=== PATIENT | female | born 1945 | race Asian ===

== ENCOUNTER 2024-03-16 23:27 | Inpatient (IN) | payer OTHER ==
[2024-03-16] MEDS ORDERED: RAPID SEQUENCE INTUBATION KIT NR ONE (23:48)
[2024-03-17] MEDS: ROCURONIUM BROMIDE 50 MG/5 ML VIAL IV ONE ×2 (00:30→03:45)
[2024-03-17 01:10] LABS: EPI CELLS >36 /uL (0-25.1); HYALINE CASTS 19 /uL (0-3.1); PH,URINE 5.5 (5.0-8.0); URINE APPEARANCE CLOUDY; URINE BACTERIA 2 /uL (0-1359); URINE BILIRUBIN NEGATIVE (NEGATIVE); URINE COLOR YELLOW; URINE GLUCOSE (UA) NEGATIVE (NEGATIVE); URINE KETONE TRACE (NEGATIVE); URINE LEUK ESTERASE NEGATIVE (NEGATIVE); URINE NITRITE NEGATIVE (NEGATIVE); URINE PROTEIN 2+ (NEGATIVE); URINE RBC 10 /uL (0-23.9); URINE UROBILINOGEN 0.2 mg/dL (0.2-1.0); VENOUS BASE EXCESS -2.8 mmol/L (-2-2); VENOUS O2 SATURATION 78.3 % (70-80); VENOUS PCO2 34.1 mmHg (38-52); VENOUS PH 7.414 (7.310-7.410)
[2024-03-17 01:11] LABS: VENOUS BASE EXCESS -6.1 mmol/L (-2-2); VENOUS O2 SATURATION 81.1 % (70-80); VENOUS PH 7.309 (7.310-7.410)
[2024-03-17 01:17] LABS: INR 1.17 (0.83-1.09); PROTHROMBIN TIME (PATIENT) 13.4 SEC (9.7-13.0)
[2024-03-17 01:19] LABS: ACTIVATED PTT 43.2 SECONDS (25.2-36.5)
[2024-03-17] MEDS ORDERED: VANCOMYCIN 1 GRAM (PRE-DOCKED) 1,000 MG/250 ML BAG IVPB ONE (01:22)
[2024-03-17] MEDS ORDERED: CEFEPIME 1 GM/100 ML BAG IVPB ONE (01:23)
[2024-03-17 01:31] LABS: CHLORIDE 164 mmol/L (98-107); POTASSIUM 3.9 mmol/L (3.5-5.1)
[2024-03-17 01:33] LABS: BLOOD UREA NITROGEN 69.1 mg/dL (7-18); CALCIUM 8.8 mg/dL (8.5-10.1); CO2 24 mmol/L (21-32); GLUCOSE,RANDOM 61 mg/dL (74-106)
[2024-03-17 01:36] LABS: SGOT/AST 76 U/L (15-37); SGPT/ALT 24 U/L (13-61)
[2024-03-17 01:37] LABS: CREATININE 1.7 mg/dL (0.55-1.3)
[2024-03-17] MEDS: CEFEPIME HCL 1 GM VIAL (RESTRICTED TO ID) IVPB ONE (01:37)
[2024-03-17 01:38] LABS: BILIRUBIN,TOTAL 0.9 mg/dL (0.2-1); HEMATOCRIT 34.1 % (32.4-45.2); HEMOGLOBIN 9.8 GM/dL (10.7-15.3); MCH 33.8 pg (25.7-33.7); MCHC 28.8 g/dl (32.0-36.0); MEAN CELL VOLUME 117.3 fl (80-96); MEAN PLT VOLUME 11.6 fl (7.5-11.1); PLATELET COUNT 87 10^3/uL (134-434); RBC 2.91 M/mm3 (3.60-5.2); RDW 19.6 % (11.6-15.6); TOT PROT 6.6 g/dl (6.4-8.2); WHITE BLOOD COUNT 6.1 K/mm3 (4.0-10.0)
[2024-03-17 01:39] LABS: ALK PHOS 238 U/L (45-117)
[2024-03-17 01:45] LABS: ANION GAP 6 mmol/L (4-13); SODIUM 194 mmol/L (136-145)
[2024-03-17] MEDS: SODIUM CHLORIDE 0.9% 500 ML INFUS.BAG IV ONE (02:06)
[2024-03-17] MEDS: VANCOMYCIN 1,000 MG in DEXTROSE 5%-WATER - 250 ML IVPB ONE (02:23)
[2024-03-17 02:40] LABS: ANISOCYTOSIS 2+; MACROCYTOSIS 2+
[2024-03-17 02:43] LABS: PLATELET ESTIMATE DECREASED
[2024-03-17 03:03] LABS: LACTIC ACID 5.1 mmol/L (0.4-2.0)
[2024-03-17 03:10] LABS: URINE WBC 79.7 /uL (0-25.8)
[2024-03-17] MEDS: ETOMIDATE 20 MG/10 ML VIAL IVPUSH ONE (03:14)
[2024-03-17 03:21] LABS: CHLORIDE 160 mmol/L (98-107)
[2024-03-17 03:24] LABS: BLOOD UREA NITROGEN 60.7 mg/dL (7-18); CO2 21 mmol/L (21-32); GLUCOSE,RANDOM 302 mg/dL (74-106)
[2024-03-17 03:27] LABS: CREATININE 1.4 mg/dL (0.55-1.3); SGOT/AST 38 U/L (15-37); SGPT/ALT 17 U/L (13-61)
[2024-03-17 03:28] LABS: BILIRUBIN,TOTAL 0.6 mg/dL (0.2-1)
[2024-03-17 03:34] LABS: ALBUMIN 1.5 g/dl (3.4-5.0); ALK PHOS 174 U/L (45-117); ANION GAP 4 mmol/L (4-13); CALCIUM 6.8 mg/dL (8.5-10.1); POTASSIUM 1.9 mmol/L (3.5-5.1); SODIUM 184 mmol/L (136-145)
[2024-03-17] MEDS: LACTATED RINGERS SOLUTION 1,000 ML/1,000 ML INFUS.BAG IV SCH (04:05)
[2024-03-17 04:29] LABS: CHLORIDE 165 mmol/L (98-107)
[2024-03-17 04:31] LABS: ALBUMIN 1.7 g/dl (3.4-5.0); BLOOD UREA NITROGEN 68.3 mg/dL (7-18); CALCIUM 7.8 mg/dL (8.5-10.1); CO2 21 mmol/L (21-32); GLUCOSE,RANDOM 203 mg/dL (74-106)
[2024-03-17 04:34] LABS: SGPT/ALT 21 U/L (13-61)
[2024-03-17 04:35] LABS: CREATININE 1.6 mg/dL (0.55-1.3); SGOT/AST 48 U/L (15-37)
[2024-03-17 04:36] LABS: BILIRUBIN,TOTAL 0.7 mg/dL (0.2-1); TOT PROT 5.5 g/dl (6.4-8.2)
[2024-03-17 04:37] LABS: ALK PHOS 199 U/L (45-117)
[2024-03-17] MEDS ORDERED: NOREPINEPHRINE BITARTRATE/D5W 8 MG/250 ML BAG IVPB ONE (04:48)
[2024-03-17 04:50] LABS: LACTIC ACID 5.6 mmol/L (0.4-2.0)
[2024-03-17] MEDS ORDERED: MAGNESIUM SULFATE IN WATER 2 GM/50 ML IVPB IVPB ONE (04:50)
[2024-03-17 05:01] LABS: ANION GAP 6 mmol/L (4-13); POTASSIUM 2.5 mmol/L (3.5-5.1); SODIUM 192 mmol/L (136-145)
[2024-03-17] MEDS: NOREPINEPHRINE BITARTRATE/D5W 8 MG/250 ML BAG IVPB SCH (05:10)
[2024-03-17] MEDS: MAGNESIUM SULFATE IN WATER 2 GM/50 ML IVPB IVPB ONE (05:10)
[2024-03-17] MEDS: KCL 10 MEQ IVPB 10 MEQ/100 ML INFUS.BAG IVPB SCH (05:40)
[2024-03-17 05:58] LABS: MAGNESIUM 3.9 mg/dL (1.8-2.4)
[2024-03-17] MEDS ORDERED: PIPERACILLIN/TAZOB 2.25 GM 2.25 GM in DEXTROSE 5%-WATER - 50 ML IVPB SCH (07:00)
[2024-03-17 07:24] LABS: LACTIC ACID 4.6 mmol/L (0.4-2.0)
[2024-03-17] MEDS ORDERED: PIPERACILLIN/TAZOB 2.25 GM 2.25 GM/50 ML BAG IVPB ONE (07:43)
[2024-03-17] MEDS ORDERED: FENTANYL IVPB 500 MCG/100 ML BAG IVPB ONE (08:10)
[2024-03-17] MEDS: PIPERACILLIN/TAZOB 2.25 GM 2.25 GM in DEXTROSE 5%-WATER - 50 ML IVPB SCH (08:10)
[2024-03-17 08:30] LABS: CHLORIDE 158 mmol/L (98-107)
[2024-03-17 08:31] LABS: MCH 33.1 pg (25.7-33.7); MCHC 28.4 g/dl (32.0-36.0); MEAN CELL VOLUME 116.5 fl (80-96); MEAN PLT VOLUME 11.6 fl (7.5-11.1); PLATELET COUNT 64 10^3/uL (134-434); RDW 19.3 % (11.6-15.6)
[2024-03-17 08:32] LABS: CALCIUM 7.8 mg/dL (8.5-10.1)
[2024-03-17 08:33] LABS: ALBUMIN 1.7 g/dl (3.4-5.0); BLOOD UREA NITROGEN 61.7 mg/dL (7-18); CO2 24 mmol/L (21-32); GLUCOSE,RANDOM 211 mg/dL (74-106); MAGNESIUM 3.6 mg/dL (1.8-2.4)
[2024-03-17 08:34] LABS: ANION GAP 3 mmol/L (4-13); POTASSIUM 2.6 mmol/L (3.5-5.1); SODIUM 185 mmol/L (136-145)
[2024-03-17 08:34] LABS: MAGNESIUM 3.5 mg/dL (1.8-2.4)
[2024-03-17] MEDS: NOREPINEPHRINE BITARTRATE 8,000 MCG in DEXTROSE 5%-WATER - 492 ML IV SCH (08:35)
[2024-03-17 08:36] LABS: CREATININE 1.5 mg/dL (0.55-1.3); PHOSPHOROUS 2.6 mg/dL (2.5-4.9); SGOT/AST 46 U/L (15-37); SGPT/ALT 22 U/L (13-61)
[2024-03-17 08:37] LABS: BILIRUBIN,TOTAL 0.7 mg/dL (0.2-1); TOT PROT 5.4 g/dl (6.4-8.2)
[2024-03-17 08:39] LABS: ALK PHOS 202 U/L (45-117)
[2024-03-17 08:45] LABS: LACTIC ACID 3.9 mmol/L (0.4-2.0)
[2024-03-17] MEDS: FENTANYL IVPB 500 MCG/100 ML BAG IVPB SCH (08:45)
[2024-03-17] MEDS: DEXTROSE 5%-WATER - 1,000 ML IV SCH (08:51)
[2024-03-17 09:57] LABS: ANISOCYTOSIS 1+; MACROCYTOSIS 1+
[2024-03-17] MEDS ORDERED: PANTOPRAZOLE SODIUM 40 MG/100 ML BAG IVPB ONE (10:16)
[2024-03-17] MEDS ORDERED: HEPARIN NA (PORCINE) 5,000 UNITS/ML 1ML VIAL ONE (10:16)
[2024-03-17] MEDS: PANTOPRAZOLE SODIUM 40 MG VIAL IVPUSH SCH (10:26)
[2024-03-17] MEDS: HEPARIN NA (PORCINE) 5,000 UNITS/ML 1ML VIAL SQ SCH (10:26)
[2024-03-17] MEDS: MUPIROCIN 2% TOPICAL OINTMENT FOR DECOLONIZATION NS SCH (12:11)
[2024-03-17] MEDS: VASopressin 40 UNITS/100 ML BAG IV SCH (12:12)
[2024-03-17] MEDS: SODIUM CHLORIDE 0.9%/KCL 20 MEQ/1,000 ML INFUS.BAG IV SCH (12:19)
[2024-03-17] MEDS: NOREPINEPHRINE 0.9 % NACL 8 MG/250 ML BAG IVPB SCH (13:20)
[2024-03-17 14:42] LABS: CHLORIDE 157 mmol/L (98-107)
[2024-03-17 14:43] LABS: BLOOD UREA NITROGEN 66.8 mg/dL (7-18); CALCIUM 7.3 mg/dL (8.5-10.1); CO2 23 mmol/L (21-32); GLUCOSE,RANDOM 234 mg/dL (74-106)
[2024-03-17] MEDS: POTASSIUM CHLORIDE 40 MEQ in LACTATED RINGERS SOLUTION 1,000 ML IV ONE ×2 (14:45→21:19)
[2024-03-17 14:47] LABS: CREATININE 1.4 mg/dL (0.55-1.3)
[2024-03-17 14:52] LABS: ANION GAP 5 mmol/L (4-13); POTASSIUM 2.7 mmol/L (3.5-5.1); SODIUM 184 mmol/L (136-145)
[2024-03-17] MEDS ORDERED: ARTIFICIAL TEARS OPHTHALMIC DROPS OU PRN (17:08)
[2024-03-17] MEDS: KCL 20 MEQ PREMIX BAG 20 MEQ/100 ML INFUS.BAG IVPB SCH (17:50)
[2024-03-17 19:03] LABS: CHLORIDE 154 mmol/L (98-107); POTASSIUM 3.7 mmol/L (3.5-5.1)
[2024-03-17 19:05] LABS: CALCIUM 7.3 mg/dL (8.5-10.1); SODIUM 179 mmol/L (136-145)
[2024-03-17 19:06] LABS: ANION GAP 3 mmol/L (4-13); BLOOD UREA NITROGEN 65.9 mg/dL (7-18); CO2 21 mmol/L (21-32); GLUCOSE,RANDOM 218 mg/dL (74-106)
[2024-03-17 19:09] LABS: CREATININE 1.5 mg/dL (0.55-1.3)
[2024-03-17] MEDS ORDERED: VANCOMYCIN 500 MG in DEXTROSE 5%-WATER - 100 ML IVPB SCH (21:00)
[2024-03-17] MEDS: CHLORHEXIDINE GLUCONATE 4% CLEANSER FOR DECOLONIZATION TP SCH (21:34)
[2024-03-17] MEDS: VANCOMYCIN 500 MG in DEXTROSE 5%-WATER 100 ML IVPB SCH (22:16)
[2024-03-17 23:12] LABS: CHLORIDE 154 mmol/L (98-107)
[2024-03-17 23:13] LABS: CALCIUM 7.3 mg/dL (8.5-10.1); CO2 20 mmol/L (21-32); GLUCOSE,RANDOM 198 mg/dL (74-106)
[2024-03-17 23:14] LABS: ANION GAP 4 mmol/L (4-13); SODIUM 178 mmol/L (136-145)
[2024-03-17 23:17] LABS: CREATININE 1.4 mg/dL (0.55-1.3)
[2024-03-18] MEDS ORDERED: FENTANYL NS IVPB 500 MCG/100 ML BAG IVPB ONE (05:38)
[2024-03-18 06:04] LABS: HEMOGLOBIN 7.4 GM/dL (10.7-15.3); MCH 33.5 pg (25.7-33.7); MCHC 29.6 g/dl (32.0-36.0); MEAN CELL VOLUME 113.1 fl (80-96); MEAN PLT VOLUME 13.1 fl (7.5-11.1); PLATELET COUNT 46 10^3/uL (134-434); RBC 2.21 M/mm3 (3.60-5.2); WHITE BLOOD COUNT 12.4 K/mm3 (4.0-10.0)
[2024-03-18 06:07] LABS: ARTERIAL BLD GAS O2 SATURATION 99.5 % (95-98); ARTERIAL BLOOD GAS BASE EXCESS -6.5 mmol/L (-2-2); ARTERIAL BLOOD GAS PO2 223.6 mmHg (80-100)
[2024-03-18 06:18] LABS: VENT MODE V-AC; VENT RATE 14
[2024-03-18 06:35] LABS: CHLORIDE 152 mmol/L (98-107); POTASSIUM 5.1 mmol/L (3.5-5.1)
[2024-03-18 06:37] LABS: BLOOD UREA NITROGEN 64.4 mg/dL (7-18); CO2 19 mmol/L (21-32); GLUCOSE,RANDOM 185 mg/dL (74-106); MAGNESIUM 2.9 mg/dL (1.8-2.4)
[2024-03-18 06:40] LABS: CREATININE 1.3 mg/dL (0.55-1.3); PHOSPHOROUS 3.2 mg/dL (2.5-4.9)
[2024-03-18 07:00] LABS: LACTIC ACID 3.4 mmol/L (0.4-2.0)
[2024-03-18 07:01] LABS: ANION GAP 4 mmol/L (4-13); CALCIUM 6.9 mg/dL (8.5-10.1); SODIUM 175 mmol/L (136-145)
[2024-03-18] MEDS: ALBUMIN HUMAN 5% 500 ML IV SOLUTION IV ONE (10:51)
[2024-03-18] MEDS ORDERED: SODIUM CHLORIDE IV SCH (10:57)
[2024-03-18] MEDS ORDERED: NOREPINEPHRINE BITARTRATE IV SCH (10:57)
[2024-03-18 11:22] LABS: CHLORIDE 151 mmol/L (98-107); POTASSIUM 4.7 mmol/L (3.5-5.1)
[2024-03-18 11:24] LABS: BLOOD UREA NITROGEN 66.2 mg/dL (7-18); CALCIUM 7.3 mg/dL (8.5-10.1); CO2 21 mmol/L (21-32); GLUCOSE,RANDOM 160 mg/dL (74-106); MAGNESIUM 3.1 mg/dL (1.8-2.4)
[2024-03-18 11:28] LABS: ANION GAP 3 mmol/L (4-13); CREATININE 1.4 mg/dL (0.55-1.3); PHOSPHOROUS 3.3 mg/dL (2.5-4.9); SODIUM 174 mmol/L (136-145)
[2024-03-18 11:42] LABS: LACTIC ACID 2.9 mmol/L (0.4-2.0)
[2024-03-18] MEDS: NOREPINEPHRINE BITARTRATE IV SCH (12:40)
[2024-03-18] MEDS: SODIUM CHLORIDE IV SCH (12:40)
[2024-03-18] MEDS: PIPERACILLIN/TAZOB 3.375 GM 3.375 GM in DEXTROSE 5%-WATER - 50 ML IVPB SCH (12:48)
[2024-03-18 16:23] LABS: HEMATOCRIT 22.3 % (32.4-45.2); MCH 33.2 pg (25.7-33.7); MEAN CELL VOLUME 114.6 fl (80-96); MEAN PLT VOLUME 11.5 fl (7.5-11.1); PLATELET COUNT 37 10^3/uL (134-434); RBC 1.95 M/mm3 (3.60-5.2); RDW 19.9 % (11.6-15.6); WHITE BLOOD COUNT 11.8 K/mm3 (4.0-10.0)
[2024-03-18 16:25] LABS: ADD RBC MORPHOLOGY YES
[2024-03-18 16:28] LABS: HEMOGLOBIN 6.5 GM/dL (10.7-15.3)
[2024-03-18 16:56] LABS: BLOOD UREA NITROGEN 66.2 mg/dL (7-18); CHLORIDE 151 mmol/L (98-107); CO2 20 mmol/L (21-32); CREATININE 1.4 mg/dL (0.55-1.3); GLUCOSE,RANDOM 163 mg/dL (74-106); POTASSIUM 4.4 mmol/L (3.5-5.1)
[2024-03-18 16:57] LABS: CALCIUM 7.4 mg/dL (8.5-10.1)
[2024-03-18 17:19] LABS: ANION GAP 4 mmol/L (4-13); ANISOCYTOSIS 1+; MACROCYTOSIS 2+; OVALOCYTE 0; SODIUM 174 mmol/L (136-145)
[2024-03-18] MEDS: FENTANYL NS IVPB 500 MCG/100 ML BAG IVPB SCH (19:01)
[2024-03-18 21:39] LABS: HEMATOCRIT 29.7 % (32.4-45.2); HEMOGLOBIN 9.3 GM/dL (10.7-15.3); MCHC 31.3 g/dl (32.0-36.0); MEAN CELL VOLUME 102.5 fl (80-96); MEAN PLT VOLUME 12.1 fl (7.5-11.1); PLATELET COUNT 39 10^3/uL (134-434); RDW 24.6 % (11.6-15.6); WHITE BLOOD COUNT 12.5 K/mm3 (4.0-10.0)
[2024-03-18 22:06] LABS: CHLORIDE 153 mmol/L (98-107); POTASSIUM 4.3 mmol/L (3.5-5.1)
[2024-03-18 22:08] LABS: CALCIUM 7.2 mg/dL (8.5-10.1)
[2024-03-18 22:09] LABS: BLOOD UREA NITROGEN 63.8 mg/dL (7-18); CO2 18 mmol/L (21-32); GLUCOSE,RANDOM 161 mg/dL (74-106)
[2024-03-18 22:12] LABS: CREATININE 1.2 mg/dL (0.55-1.3)
[2024-03-18 22:23] LABS: ANION GAP 6 mmol/L (4-13); SODIUM 176 mmol/L (136-145)
[2024-03-18] MEDS: DEXTROSE 5%-WATER - 1,000 ML IV SCH (22:30)
[2024-03-19 04:47] LABS: CHLORIDE 150 mmol/L (98-107); POTASSIUM 3.8 mmol/L (3.5-5.1)
[2024-03-19 04:49] LABS: BLOOD UREA NITROGEN 64.5 mg/dL (7-18); CO2 18 mmol/L (21-32); GLUCOSE,RANDOM 215 mg/dL (74-106); MAGNESIUM 2.9 mg/dL (1.8-2.4)
[2024-03-19 04:51] LABS: HEMATOCRIT 29.4 % (32.4-45.2); HEMOGLOBIN 9.1 GM/dL (10.7-15.3); MCH 31.4 pg (25.7-33.7); MCHC 31.1 g/dl (32.0-36.0); MEAN CELL VOLUME 100.9 fl (80-96); MEAN PLT VOLUME 13.6 fl (7.5-11.1); RBC 2.91 M/mm3 (3.60-5.2); RDW 25.4 % (11.6-15.6); WHITE BLOOD COUNT 12.4 K/mm3 (4.0-10.0)
[2024-03-19 04:52] LABS: CREATININE 1.3 mg/dL (0.55-1.3); PHOSPHOROUS 3.1 mg/dL (2.5-4.9)
[2024-03-19 05:59] LABS: LACTIC ACID 2.4 mmol/L (0.4-2.0)
[2024-03-19 06:00] LABS: ANISOCYTOSIS 1+; MACROCYTOSIS 1+
[2024-03-19 06:03] LABS: ANION GAP 6 mmol/L (4-13); SODIUM 173 mmol/L (136-145)
[2024-03-19 06:04] LABS: PLATELET COUNT 35 10^3/uL (134-434)
[2024-03-19 06:23] LABS: ARTERIAL BLD GAS O2 SATURATION 98.5 % (95-98); ARTERIAL BLOOD GAS BASE EXCESS -12.1 mmol/L (-2-2); ARTERIAL BLOOD GAS PO2 135.2 mmHg (80-100)
[2024-03-19 06:50] LABS: VENT RATE 14
[2024-03-19] MEDS: DEXTROSE 5%-WATER - 1,000 ML IV SCH (07:00)
[2024-03-19 10:55] LABS: INR 1.23 (0.83-1.09); PROTHROMBIN TIME (PATIENT) 13.8 SEC (9.7-13.0)
[2024-03-19 10:58] LABS: ACTIVATED PTT 42.4 SECONDS (25.2-36.5)
[2024-03-19 11:10] LABS: CHLORIDE 148 mmol/L (98-107); POTASSIUM 3.4 mmol/L (3.5-5.1)
[2024-03-19 11:12] LABS: BLOOD UREA NITROGEN 63.4 mg/dL (7-18); CALCIUM 7.2 mg/dL (8.5-10.1); CO2 20 mmol/L (21-32); GLUCOSE,RANDOM 209 mg/dL (74-106)
[2024-03-19 11:16] LABS: CREATININE 1.3 mg/dL (0.55-1.3)
[2024-03-19 11:30] LABS: ANION GAP 5 mmol/L (4-13); LACTIC ACID 2.2 mmol/L (0.4-2.0); SODIUM 173 mmol/L (136-145)
[2024-03-19] MEDS: HYDROCORTISONE SOD SUCCINATE 100 MG/2 ML VIAL IVPUSH SCH (13:15)
[2024-03-19] MEDS: FLUDROCORTISONE ACETATE 0.1 MG TABLET (FP) PO SCH (13:16)
[2024-03-19] MEDS: ACETAMINOPHEN 650 MG/20.3 ML ORAL SOLUTION (CUPS) PO PRN (13:16)
[2024-03-19] MEDS: CEFTRIAXONE 2 GM in DEXTROSE 5%-WATER 100 ML IVPB SCH (17:40)
[2024-03-19 18:27] LABS: CHLORIDE 146 mmol/L (98-107); POTASSIUM 3.2 mmol/L (3.5-5.1)
[2024-03-19 18:31] LABS: CALCIUM 7.2 mg/dL (8.5-10.1)
[2024-03-19 18:32] LABS: ALBUMIN 1.7 g/dl (3.4-5.0); BLOOD UREA NITROGEN 61.8 mg/dL (7-18); CO2 19 mmol/L (21-32); GLUCOSE,RANDOM 256 mg/dL (74-106)
[2024-03-19 18:35] LABS: ANION GAP 5 mmol/L (4-13); CREATININE 1.2 mg/dL (0.55-1.3); SGOT/AST 145 U/L (15-37); SGPT/ALT 128 U/L (13-61); SODIUM 171 mmol/L (136-145)
[2024-03-19 18:36] LABS: BILIRUBIN,TOTAL 0.9 mg/dL (0.2-1); TOT PROT 4.8 g/dl (6.4-8.2)
[2024-03-19 18:50] LABS: ALK PHOS 411 U/L (45-117)
[2024-03-20 07:52] LABS: HEMATOCRIT 27.6 % (32.4-45.2); HEMOGLOBIN 8.7 GM/dL (10.7-15.3); MCH 31.9 pg (25.7-33.7); MCHC 31.5 g/dl (32.0-36.0); MEAN CELL VOLUME 101.3 fl (80-96); MEAN PLT VOLUME 10.4 fl (7.5-11.1); RBC 2.72 M/mm3 (3.60-5.2); RDW 25.6 % (11.6-15.6); WHITE BLOOD COUNT 8.5 K/mm3 (4.0-10.0)
[2024-03-20 08:06] LABS: CHLORIDE 143 mmol/L (98-107)
[2024-03-20 08:07] LABS: CHLORIDE 144 mmol/L (98-107)
[2024-03-20 08:09] LABS: INR 1.01 (0.83-1.09); PROTHROMBIN TIME (PATIENT) 11.6 SEC (9.7-13.0)
[2024-03-20 08:12] LABS: CALCIUM 7.2 mg/dL (8.5-10.1)
[2024-03-20 08:13] LABS: ALBUMIN 1.7 g/dl (3.4-5.0); BLOOD UREA NITROGEN 61.7 mg/dL (7-18); CO2 20 mmol/L (21-32); GLUCOSE,RANDOM 227 mg/dL (74-106); MAGNESIUM 2.9 mg/dL (1.8-2.4)
[2024-03-20 08:15] LABS: ANION GAP 4 mmol/L (4-13); POTASSIUM 2.8 mmol/L (3.5-5.1); SODIUM 168 mmol/L (136-145); SODIUM 169 mmol/L (136-145)
[2024-03-20 08:16] LABS: CALCIUM 7.2 mg/dL (8.5-10.1); CREATININE 1.1 mg/dL (0.55-1.3); PHOSPHOROUS 2.6 mg/dL (2.5-4.9); SGOT/AST 140 U/L (15-37); SGPT/ALT 127 U/L (13-61)
[2024-03-20 08:17] LABS: ALBUMIN 1.7 g/dl (3.4-5.0); ANION GAP 4 mmol/L (4-13); BILIRUBIN,TOTAL 0.6 mg/dL (0.2-1); BLOOD UREA NITROGEN 60.9 mg/dL (7-18); CO2 21 mmol/L (21-32); GLUCOSE,RANDOM 226 mg/dL (74-106); TOT PROT 4.7 g/dl (6.4-8.2)
[2024-03-20 08:19] LABS: SGPT/ALT 125 U/L (13-61)
[2024-03-20 08:20] LABS: CREATININE 1.2 mg/dL (0.55-1.3); SGOT/AST 138 U/L (15-37)
[2024-03-20 08:21] LABS: ALK PHOS 445 U/L (45-117); BILIRUBIN,TOTAL 0.6 mg/dL (0.2-1); TOT PROT 4.6 g/dl (6.4-8.2)
[2024-03-20 08:28] LABS: ALK PHOS 460 U/L (45-117); LACTIC ACID 2.2 mmol/L (0.4-2.0); PLATELET COUNT 17 10^3/uL (134-434)
[2024-03-20] MEDS ORDERED: POTASSIUM CHLORIDE ORAL LIQUID 20 MEQ/15 ML PO SCH (10:00)
[2024-03-20] MEDS: POTASSIUM CHLORIDE ORAL LIQUID 20 MEQ/15 ML GT SCH (10:05)
[2024-03-20 13:58] LABS: LACTIC ACID 3.2 mmol/L (0.4-2.0)
[2024-03-20] MEDS: SODIUM CHLORIDE 0.45% 1,000 ML IV SCH (15:00)
[2024-03-20 18:30] LABS: HEMATOCRIT 25.1 % (32.4-45.2); MCH 32.8 pg (25.7-33.7); MCHC 31.9 g/dl (32.0-36.0); MEAN CELL VOLUME 102.7 fl (80-96); MEAN PLT VOLUME 8.7 fl (7.5-11.1); PLATELET COUNT 127 10^3/uL (134-434); RBC 2.44 M/mm3 (3.60-5.2); RDW 24.8 % (11.6-15.6); WHITE BLOOD COUNT 7.1 K/mm3 (4.0-10.0)
[2024-03-20 18:57] LABS: LACTIC ACID 3.3 mmol/L (0.4-2.0)
[2024-03-20 21:25] LABS: HEMATOCRIT 26.3 % (32.4-45.2); HEMOGLOBIN 8.4 GM/dL (10.7-15.3); MCH 31.7 pg (25.7-33.7); MCHC 31.9 g/dl (32.0-36.0); MEAN CELL VOLUME 99.3 fl (80-96); MEAN PLT VOLUME 8.5 fl (7.5-11.1); PLATELET COUNT 131 10^3/uL (134-434); RBC 2.65 M/mm3 (3.60-5.2); RDW 24.8 % (11.6-15.6); WHITE BLOOD COUNT 6.3 K/mm3 (4.0-10.0)
[2024-03-20 21:33] LABS: ADD RBC MORPHOLOGY YES
[2024-03-20 21:41] LABS: POTASSIUM 3.3 mmol/L (3.5-5.1)
[2024-03-20 21:43] LABS: BLOOD UREA NITROGEN 54.9 mg/dL (7-18); CALCIUM 7.3 mg/dL (8.5-10.1); MAGNESIUM 2.8 mg/dL (1.8-2.4)
[2024-03-20 21:47] LABS: CREATININE 1.1 mg/dL (0.55-1.3)
[2024-03-20 23:09] LABS: ANISOCYTOSIS 2+; MACROCYTOSIS 0; OVALOCYTE 1+
[2024-03-20] MEDS: POTASSIUM CHLORIDE ORAL LIQUID 20 MEQ/15 ML PO ONE (23:41)
[2024-03-20] MEDS: KCL 20 MEQ PREMIX BAG 20 MEQ/100 ML INFUS.BAG IVPB SCH (23:56)
[2024-03-21 07:31] LABS: HEMATOCRIT 27.3 % (32.4-45.2); HEMOGLOBIN 8.8 GM/dL (10.7-15.3); MCH 32.2 pg (25.7-33.7); MCHC 32.3 g/dl (32.0-36.0); MEAN CELL VOLUME 99.5 fl (80-96); MEAN PLT VOLUME 9.6 fl (7.5-11.1); PLATELET COUNT 115 10^3/uL (134-434); RBC 2.74 M/mm3 (3.60-5.2); WHITE BLOOD COUNT 6.4 K/mm3 (4.0-10.0)
[2024-03-21 07:43] LABS: CHLORIDE 140 mmol/L (98-107); POTASSIUM 4.8 mmol/L (3.5-5.1)
[2024-03-21 07:49] LABS: ALBUMIN 1.8 g/dl (3.4-5.0); BLOOD UREA NITROGEN 52.1 mg/dL (7-18); CALCIUM 7.2 mg/dL (8.5-10.1); CO2 17 mmol/L (21-32); GLUCOSE,RANDOM 141 mg/dL (74-106); MAGNESIUM 2.8 mg/dL (1.8-2.4)
[2024-03-21 07:52] LABS: CREATININE 0.9 mg/dL (0.55-1.3); PHOSPHOROUS 2.4 mg/dL (2.5-4.9); SGOT/AST 120 U/L (15-37); SGPT/ALT 125 U/L (13-61)
[2024-03-21 07:53] LABS: BILIRUBIN,TOTAL 0.6 mg/dL (0.2-1); TOT PROT 5.1 g/dl (6.4-8.2)
[2024-03-21 08:02] LABS: ALK PHOS 509 U/L (45-117); ANION GAP 4 mmol/L (4-13); SODIUM 161 mmol/L (136-145)
[2024-03-21] MEDS: HYDROCORTISONE SOD SUCCINATE 100 MG/2 ML VIAL IVPUSH SCH (09:34)
[2024-03-21] MEDS: FUROSEMIDE 40 MG/4 ML INJECTABLE VIAL IVPUSH ONE (09:35)
[2024-03-21] MEDS: ALBUMIN HUMAN 25% 100 ML VIAL IV ONE (10:42)
[2024-03-21 21:24] LABS: CHLORIDE 138 mmol/L (98-107); POTASSIUM 3.4 mmol/L (3.5-5.1)
[2024-03-21 21:26] LABS: ALBUMIN 2.5 g/dl (3.4-5.0); ANION GAP 4 mmol/L (4-13); CALCIUM 7.7 mg/dL (8.5-10.1); CO2 20 mmol/L (21-32); GLUCOSE,RANDOM 126 mg/dL (74-106); MAGNESIUM 2.9 mg/dL (1.8-2.4); SODIUM 163 mmol/L (136-145)
[2024-03-21 21:28] LABS: BLOOD UREA NITROGEN 51.7 mg/dL (7-18)
[2024-03-21 21:29] LABS: CREATININE 1.1 mg/dL (0.55-1.3)
[2024-03-21 21:31] LABS: BILIRUBIN,TOTAL 0.4 mg/dL (0.2-1); SGOT/AST 93 U/L (15-37); SGPT/ALT 98 U/L (13-61); TOT PROT 5.1 g/dl (6.4-8.2)
[2024-03-21 21:54] LABS: ALK PHOS 461 U/L (45-117)
[2024-03-21] MEDS: KCL 20 MEQ PREMIX BAG 20 MEQ/100 ML INFUS.BAG IVPB SCH (22:20)
[2024-03-21] MEDS: CALCIUM GLUC IN NACL, ISO-OSM 1 GM/50 ML BAG IVPB ONE (22:20)
[2024-03-22 07:09] LABS: HEMATOCRIT 24.9 % (32.4-45.2); HEMOGLOBIN 8.1 GM/dL (10.7-15.3); MCH 32.2 pg (25.7-33.7); MCHC 32.5 g/dl (32.0-36.0); MEAN CELL VOLUME 99.3 fl (80-96); MEAN PLT VOLUME 9.3 fl (7.5-11.1); PLATELET COUNT 71 10^3/uL (134-434); RBC 2.51 M/mm3 (3.60-5.2); RDW 22.9 % (11.6-15.6); WHITE BLOOD COUNT 5.7 K/mm3 (4.0-10.0)
[2024-03-22 07:27] LABS: POTASSIUM 3.7 mmol/L (3.5-5.1)
[2024-03-22 07:31] LABS: ALBUMIN 2.3 g/dl (3.4-5.0); BLOOD UREA NITROGEN 44.8 mg/dL (7-18); CALCIUM 7.8 mg/dL (8.5-10.1)
[2024-03-22 07:32] LABS: MAGNESIUM 2.6 mg/dL (1.8-2.4)
[2024-03-22 07:36] LABS: BILIRUBIN,TOTAL 0.5 mg/dL (0.2-1); TOT PROT 5.1 g/dl (6.4-8.2)
[2024-03-22] MEDS ORDERED: HYDROCORTISONE SOD SUCCINATE 100 MG/2 ML VIAL IVPUSH SCH (10:22)
[2024-03-22] MEDS: FUROSEMIDE 40 MG/4 ML INJECTABLE VIAL IVPUSH ONE (12:23)
[2024-03-22 12:35] LABS: ARTERIAL BLOOD GAS BASE EXCESS -6.6 mmol/L (-2-2); ARTERIAL BLOOD GAS PO2 58.5 mmHg (80-100); ARTERIAL BLOOD GAS pH 7.443 (7.350-7.450)
[2024-03-22 12:36] LABS: ALLENS TEST POSITIVE
[2024-03-22] MEDS: ALBUMIN HUMAN 25% 100 ML VIAL IV ONE (14:19)
[2024-03-22] MEDS: MIDODRINE HCL 2.5 MG TABLET PO SCH (17:48)
[2024-03-22 19:37] LABS: CHLORIDE 132 mmol/L (98-107); POTASSIUM 2.4 mmol/L (3.5-5.1); SODIUM 159 mmol/L (136-145)
[2024-03-22 19:40] LABS: CALCIUM 7.8 mg/dL (8.5-10.1)
[2024-03-22 19:41] LABS: ANION GAP 7 mmol/L (4-13); BLOOD UREA NITROGEN 42.9 mg/dL (7-18); CO2 19 mmol/L (21-32); GLUCOSE,RANDOM 97 mg/dL (74-106)
[2024-03-22] MEDS ORDERED: KCL 10 MEQ IVPB 10 MEQ/100 ML INFUS.BAG IVPB SCH (20:15)
[2024-03-22] MEDS ORDERED: POTASSIUM CHLORIDE TABS 20 MEQ TABLET.ER (FP) PO ONE (20:16)
[2024-03-22] MEDS: POTASSIUM CHLORIDE ORAL LIQUID 20 MEQ/15 ML PO ONE ×2 (20:53→23:13)
[2024-03-22] MEDS: PNEUMOC 20-VAL CONJ-DIP CRM/PF 0.5 ML SYRINGE IM ONE (21:34)
[2024-03-23 08:57] LABS: CHLORIDE 136 mmol/L (98-107); POTASSIUM 3.2 mmol/L (3.5-5.1)
[2024-03-23 09:05] LABS: BLOOD UREA NITROGEN 41.4 mg/dL (7-18); CALCIUM 7.7 mg/dL (8.5-10.1); CO2 20 mmol/L (21-32); GLUCOSE,RANDOM 145 mg/dL (74-106); HEMATOCRIT 26.9 % (32.4-45.2); HEMOGLOBIN 8.8 GM/dL (10.7-15.3); MAGNESIUM 2.6 mg/dL (1.8-2.4); MCH 32.4 pg (25.7-33.7); MCHC 32.8 g/dl (32.0-36.0); MEAN PLT VOLUME 11.2 fl (7.5-11.1); PLATELET COUNT 72 10^3/uL (134-434); RBC 2.71 M/mm3 (3.60-5.2); RDW 22.3 % (11.6-15.6)
[2024-03-23 09:07] LABS: WHITE BLOOD COUNT 7.6 K/mm3 (4.0-10.0)
[2024-03-23 09:08] LABS: ANION GAP 7 mmol/L (4-13); SODIUM 163 mmol/L (136-145)
[2024-03-23] MEDS: HYDROCORTISONE SOD SUCCINATE 100 MG/2 ML VIAL IVPUSH SCH (09:35)
[2024-03-23 09:57] LABS: ANISOCYTOSIS 3+; MACROCYTOSIS 0; TARGET CELLS 1+
[2024-03-23] MEDS: CEFTRIAXONE 2 GM in DEXTROSE 5%-WATER 100 ML IVPB SCH (11:32)
[2024-03-23] MEDS: POTASSIUM CHLORIDE ORAL LIQUID 20 MEQ/15 ML PO ONE (11:34)
[2024-03-23] MEDS: ZINC OXIDE 20% TOPICAL OINTMENT 30 GM TUBE TP SCH (13:36)
[2024-03-23] MEDS ORDERED: ACETAMINOPHEN 650 MG/20.3 ML ORAL SOLUTION (CUPS) PO PRN (15:43)
[2024-03-23] MEDS: KCL 10 MEQ IVPB 10 MEQ/100 ML INFUS.BAG IVPB SCH ×2 (16:28→21:39)
[2024-03-23] MEDS ORDERED: COLLAGENASE CLOSTRIDIUM HIST. 30 GRAMS TUBE TP SCH (18:23)
[2024-03-23] MEDS: COLLAGENASE CLOSTRIDIUM HIST. 30 GRAMS TUBE TP SCH (18:41)
[2024-03-24] MEDS: PANTOPRAZOLE SODIUM 40 MG VIAL IVPUSH SCH (09:47)
[2024-03-24] MEDS ORDERED: ASPIRIN 81 MG CHEWABLE TABLETS GT SCH (10:00)
[2024-03-24 12:17] VITALS: BMI 18.8
[2024-03-24] MEDS: SODIUM CHLORIDE 0.45% 1,000 ML IV SCH (16:12)
[2024-03-24] MEDS ORDERED: AMOX TR/POT CLAV 500MG/125MG TABLETS (FP) PO SCH ×2 (17:30)
[2024-03-24] MEDS: AMOX TR/POTASSIUM CLAVULANATE 400 MG/5 ML BOTTLE GT SCH (18:31)
[2024-03-24] MEDS: MIDODRINE HCL 2.5 MG TABLET GT SCH (18:31)
[2024-03-24] MEDS: DEXTROSE 5%-WATER - 1,000 ML IV SCH (18:52)
[2024-03-24 21:48] LABS: POTASSIUM 3.3 mmol/L (3.5-5.1)
[2024-03-24 21:49] LABS: CALCIUM 7.4 mg/dL (8.5-10.1)
[2024-03-24 21:50] LABS: BLOOD UREA NITROGEN 30.7 mg/dL (7-18)
[2024-03-24 21:53] LABS: CREATININE 0.7 mg/dL (0.55-1.3)
[2024-03-25 07:41] LABS: HEMOGLOBIN 8.8 GM/dL (10.7-15.3); MCH 32.6 pg (25.7-33.7); MCHC 32.5 g/dl (32.0-36.0); MEAN CELL VOLUME 100.4 fl (80-96); MEAN PLT VOLUME 10.9 fl (7.5-11.1); PLATELET COUNT 71 10^3/uL (134-434); RBC 2.69 M/mm3 (3.60-5.2); RDW 21.5 % (11.6-15.6)
[2024-03-25 07:47] LABS: POTASSIUM 3.2 mmol/L (3.5-5.1)
[2024-03-25 07:53] LABS: CALCIUM 7.2 mg/dL (8.5-10.1)
[2024-03-25 07:54] LABS: ALBUMIN 1.9 g/dl (3.4-5.0); BLOOD UREA NITROGEN 27.3 mg/dL (7-18); MAGNESIUM 2.2 mg/dL (1.8-2.4)
[2024-03-25 07:56] LABS: CREATININE 0.6 mg/dL (0.55-1.3); PHOSPHOROUS 2.2 mg/dL (2.5-4.9)
[2024-03-25 07:57] LABS: BILIRUBIN,TOTAL 0.3 mg/dL (0.2-1); TOT PROT 4.6 g/dl (6.4-8.2)
[2024-03-25 08:14] LABS: WHITE BLOOD COUNT 7.4 K/mm3 (4.0-10.0)
[2024-03-25 09:00] LABS: ANISOCYTOSIS 2+; MACROCYTOSIS 1+
[2024-03-25] MEDS: POTASSIUM CHLORIDE ORAL LIQUID 20 MEQ/15 ML GT ONE (11:06)
[2024-03-25] MEDS ORDERED: ACETYLCYSTEINE 20% 200MG/ML 30 ML VIAL *FOR ORAL / INH USE ONLY NEB ONE (15:21)
[2024-03-25] MEDS: ALBUTEROL SO4 0.5 % INH SOLN 2.5 MG/0.5 ML VIAL.NEB. NEB ONE (15:29)
[2024-03-25] MEDS: ACETYLCYSTEINE 20% 200MG/ML 4 ML VIAL *FOR ORAL / INH USE ONLY NEB ONE (15:30)
[2024-03-25] MEDS ORDERED: PIPERACILLIN/TAZOB 3.375 GM 3.375 GM in DEXTROSE 5%-WATER - 50 ML IVPB SCH (16:00)
[2024-03-25] MEDS: PIPERACILLIN/TAZOB 3.375 GM 3.375 GM in DEXTROSE 5%-WATER - 50 ML IVPB SCH (17:59)
[2024-03-26] MEDS ORDERED: FUROSEMIDE 40 MG/4 ML INJECTABLE VIAL ONE (05:58)
[2024-03-26 06:32] LABS: HEMATOCRIT 29.8 % (32.4-45.2); HEMOGLOBIN 9.6 GM/dL (10.7-15.3); MCH 31.9 pg (25.7-33.7); MCHC 32.2 g/dl (32.0-36.0); MEAN CELL VOLUME 98.9 fl (80-96); MEAN PLT VOLUME 10.7 fl (7.5-11.1); PLATELET COUNT 79 10^3/uL (134-434); RBC 3.02 M/mm3 (3.60-5.2); WHITE BLOOD COUNT 7.4 K/mm3 (4.0-10.0)
[2024-03-26 06:33] LABS: ARTERIAL BLOOD GAS pH 7.403 (7.350-7.450)
[2024-03-26 06:35] LABS: ALLENS TEST POSITIVE
[2024-03-26] MEDS ORDERED: NOREPINEPHRINE BITARTRATE 4 MG/4 ML ML IV ONE (06:39)
[2024-03-26 06:45] LABS: ARTERIAL BLOOD GAS PO2 39.6 mmHg (80-100)
[2024-03-26 06:48] LABS: POTASSIUM 3.3 mmol/L (3.5-5.1)
[2024-03-26 06:50] LABS: CALCIUM 7.5 mg/dL (8.5-10.1)
[2024-03-26 06:51] LABS: ALBUMIN 1.9 g/dl (3.4-5.0); BLOOD UREA NITROGEN 24.9 mg/dL (7-18); MAGNESIUM 2.3 mg/dL (1.8-2.4)
[2024-03-26 06:54] LABS: CREATININE 0.5 mg/dL (0.55-1.3)
[2024-03-26 06:55] LABS: BILIRUBIN,TOTAL 0.5 mg/dL (0.2-1); TOT PROT 4.8 g/dl (6.4-8.2)
[2024-03-26] MEDS ORDERED: PROPOFOL 1,000,000 MCG/100 ML VIAL ONE (07:31)
[2024-03-26] MEDS: FUROSEMIDE 40 MG/4 ML INJECTABLE VIAL IVPUSH ONE (08:39)
[2024-03-26 09:18] LABS: ANISOCYTOSIS 0; CORRECTED WBC 6.38 K/mm3; MACROCYTOSIS 0
[2024-03-26] MEDS: LACTATED RINGERS SOLUTION 1,000 ML/1,000 ML INFUS.BAG IV STA (11:59)
[2024-03-26] MEDS ORDERED: FUROSEMIDE 40 MG/4 ML INJECTABLE VIAL IVPUSH ONE (12:00)
[2024-03-26] MEDS ORDERED: NOREPINEPHRINE BITARTRATE 4,000 MCG in SODIUM CHLORIDE 496 ML IV SCH (13:30)
[2024-03-26] MEDS: NOREPINEPHRINE 0.9 % NACL 8 MG/250 ML BAG IVPB SCH (17:31)
[2024-03-26] MEDS ORDERED: FUROSEMIDE 40 MG/4 ML INJECTABLE VIAL IVPUSH SCH (18:00)
[2024-03-26] MEDS ORDERED: DEXTROSE 50%-WATER 25 GM/50 ML DISP.SYRIN ONE (18:14)
[2024-03-26] MEDS: DEXTROSE 50%-WATER - 25 GM/50 ML VIAL IVPUSH ONE (18:19)
[2024-03-26] MEDS: PIPERACILLIN/TAZOB 3.375 GM 3.375 GM in DEXTROSE 5%-WATER - 50 ML IVPB SCH (18:37)
[2024-03-26] MEDS: DEXTROSE 5%-0.45% SALINE 1,000 ML IV SCH (18:37)
[2024-03-26] MEDS: KCL 20 MEQ PREMIX BAG 20 MEQ/100 ML INFUS.BAG IVPB SCH (21:12)
[2024-03-27 07:37] LABS: BASO % 0.2 % (0-2.0); EOS % 2.4 % (0-4.5); HEMOGLOBIN 8.1 GM/dL (10.7-15.3); LYMPH % 10.7 % (8-40); MCH 32.3 pg (25.7-33.7); MCHC 32.3 g/dl (32.0-36.0); MEAN CELL VOLUME 99.9 fl (80-96); MEAN PLT VOLUME 12.2 fl (7.5-11.1); MONO % 1.8 % (3.8-10.2); NEUT % 84.9 % (42.8-82.8); PLATELET COUNT 88 10^3/uL (134-434); RDW 20.6 % (11.6-15.6); WHITE BLOOD COUNT 8.5 K/mm3 (4.0-10.0)
[2024-03-27 07:51] LABS: POTASSIUM 3.6 mmol/L (3.5-5.1)
[2024-03-27 07:54] LABS: ALBUMIN 1.5 g/dl (3.4-5.0); BLOOD UREA NITROGEN 19.8 mg/dL (7-18); CALCIUM 7.1 mg/dL (8.5-10.1); MAGNESIUM 2.1 mg/dL (1.8-2.4)
[2024-03-27 07:59] LABS: BILIRUBIN,TOTAL 0.5 mg/dL (0.2-1); CREATININE 0.6 mg/dL (0.55-1.3); PHOSPHOROUS 2.5 mg/dL (2.5-4.9)
[2024-03-27 08:01] LABS: TOT PROT 4.4 g/dl (6.4-8.2)
[2024-03-27 18:29] LABS: CHLORIDE 120 mmol/L (98-107); SODIUM 148 mmol/L (136-145)
[2024-03-27 18:31] LABS: ANION GAP 6 mmol/L (4-13); BLOOD UREA NITROGEN 17.3 mg/dL (7-18); CO2 23 mmol/L (21-32); GLUCOSE,RANDOM 146 mg/dL (74-106)
[2024-03-27 18:34] LABS: CREATININE 0.5 mg/dL (0.55-1.3)
[2024-03-27 18:35] LABS: CALCIUM 6.9 mg/dL (8.5-10.1)
[2024-03-27] MEDS: KCL 10 MEQ IVPB 10 MEQ/100 ML INFUS.BAG IVPB SCH (19:55)
[2024-03-27] MEDS: levETIRAcetam 500 MG/5 ML INJECTION VIAL IVPB SCH (21:16)
[2024-03-28 07:21] LABS: CHLORIDE 115 mmol/L (98-107); SODIUM 145 mmol/L (136-145)
[2024-03-28 07:22] LABS: HEMOGLOBIN 7.7 GM/dL (10.7-15.3); MCH 32.2 pg (25.7-33.7); MCHC 32.2 g/dl (32.0-36.0); MEAN CELL VOLUME 100.1 fl (80-96); PLATELET COUNT 96 10^3/uL (134-434); RDW 20.5 % (11.6-15.6); WHITE BLOOD COUNT 7.4 K/mm3 (4.0-10.0)
[2024-03-28 07:24] LABS: BLOOD UREA NITROGEN 13.5 mg/dL (7-18); CO2 22 mmol/L (21-32); MAGNESIUM 1.9 mg/dL (1.8-2.4)
[2024-03-28 07:26] LABS: ALBUMIN 1.4 g/dl (3.4-5.0); GLUCOSE,RANDOM 221 mg/dL (74-106)
[2024-03-28 07:27] LABS: CREATININE 0.4 mg/dL (0.55-1.3); PHOSPHOROUS 2.4 mg/dL (2.5-4.9); SGOT/AST 56 U/L (15-37); SGPT/ALT 61 U/L (13-61)
[2024-03-28 07:28] LABS: BILIRUBIN,TOTAL 0.5 mg/dL (0.2-1)
[2024-03-28 07:30] LABS: ALK PHOS 213 U/L (45-117); TOT PROT 4.3 g/dl (6.4-8.2)
[2024-03-28 07:32] LABS: ANION GAP 8 mmol/L (4-13); CALCIUM 6.4 mg/dL (8.5-10.1); POTASSIUM 2.9 mmol/L (3.5-5.1)
[2024-03-28] MEDS: POTASSIUM CHLORIDE ORAL LIQUID 20 MEQ/15 ML PO SCH (08:27)
[2024-03-28] MEDS: NAPH,MB-DB/K PH,MBDB POWDER PACKET PO ONE (12:11)
[2024-03-28 12:38] LABS: ARTERIAL BLD GAS O2 SATURATION 98.1 % (95-98); ARTERIAL BLOOD GAS BASE EXCESS -3.7 mmol/L (-2-2); ARTERIAL BLOOD GAS PO2 100.3 mmHg (80-100); ARTERIAL BLOOD GAS pH 7.494 (7.350-7.450)
[2024-03-28 12:41] LABS: ALLENS TEST POSITIVE
[2024-03-28] MEDS: POTASSIUM CHLORIDE ORAL LIQUID 20 MEQ/15 ML PO ONE (18:18)
[2024-03-28] MEDS ORDERED: ALBUTEROL SO4 0.083% IH SOL 2.5 MG/3 ML VIAL.NEB. NEB ONE (20:38)
[2024-03-28] MEDS: KCL 20 MEQ PREMIX BAG 20 MEQ/100 ML INFUS.BAG IVPB SCH (20:51)
[2024-03-28] MEDS: ALBUTEROL SULFATE 0.021% (0.63 MG/3 ML) VIAL.NEB NEB PRN (20:51)
[2024-03-29] MEDS: CALCIUM GLUC IN NACL, ISO-OSM 1 GM/50 ML BAG IVPB ONE (00:36)
[2024-03-29 01:28] LABS: BLOOD UREA NITROGEN 12.8 mg/dL (7-18)
[2024-03-29 01:30] LABS: CREATININE 0.5 mg/dL (0.55-1.3)
[2024-03-29 01:35] LABS: CALCIUM 7.5 mg/dL (8.5-10.1)
[2024-03-29 06:19] LABS: HEMATOCRIT 24.2 % (32.4-45.2); HEMOGLOBIN 7.9 GM/dL (10.7-15.3); MCH 32.6 pg (25.7-33.7); MCHC 32.5 g/dl (32.0-36.0); MEAN CELL VOLUME 100.2 fl (80-96); MEAN PLT VOLUME 11.6 fl (7.5-11.1); PLATELET COUNT 121 10^3/uL (134-434); RBC 2.42 M/mm3 (3.60-5.2); RDW 20.7 % (11.6-15.6); WHITE BLOOD COUNT 7.3 K/mm3 (4.0-10.0)
[2024-03-29 06:37] LABS: POTASSIUM 4.4 mmol/L (3.5-5.1)
[2024-03-29 06:39] LABS: CALCIUM 7.6 mg/dL (8.5-10.1)
[2024-03-29 06:40] LABS: ALBUMIN 1.4 g/dl (3.4-5.0); BLOOD UREA NITROGEN 13.2 mg/dL (7-18); MAGNESIUM 2.1 mg/dL (1.8-2.4)
[2024-03-29 06:43] LABS: CREATININE 0.4 mg/dL (0.55-1.3); PHOSPHOROUS 2.8 mg/dL (2.5-4.9)
[2024-03-29 06:44] LABS: TOT PROT 4.5 g/dl (6.4-8.2)
[2024-03-29 06:45] LABS: BILIRUBIN,TOTAL 0.5 mg/dL (0.2-1)
[2024-03-29] MEDS: AMINO ACIDS/PROTEIN HYDROLYS 30 ML LIQUID.PKT GT SCH (17:45)
[2024-03-30 06:37] LABS: HEMATOCRIT 20.7 % (32.4-45.2); MCH 32.5 pg (25.7-33.7); MCHC 32.3 g/dl (32.0-36.0); MEAN CELL VOLUME 100.6 fl (80-96); MEAN PLT VOLUME 11.7 fl (7.5-11.1); PLATELET COUNT 124 10^3/uL (134-434); RBC 2.06 M/mm3 (3.60-5.2); RDW 20.5 % (11.6-15.6); WHITE BLOOD COUNT 5.4 K/mm3 (4.0-10.0)
[2024-03-30 06:47] LABS: HEMOGLOBIN 6.7 GM/dL (10.7-15.3)
[2024-03-30 06:56] LABS: POTASSIUM 3.5 mmol/L (3.5-5.1)
[2024-03-30 07:01] LABS: CALCIUM 7.2 mg/dL (8.5-10.1)
[2024-03-30 07:02] LABS: ALBUMIN 1.2 g/dl (3.4-5.0); MAGNESIUM 1.9 mg/dL (1.8-2.4)
[2024-03-30 07:04] LABS: PHOSPHOROUS 2.9 mg/dL (2.5-4.9)
[2024-03-30 07:05] LABS: CREATININE 0.4 mg/dL (0.55-1.3)
[2024-03-30 07:06] LABS: BILIRUBIN,TOTAL 0.5 mg/dL (0.2-1); TOT PROT 4.3 g/dl (6.4-8.2)
[2024-03-30 09:17] LABS: RETICULOCYTES 2.17 % (0.5-1.5)
[2024-03-30] MEDS: ASCORBIC ACID 500 MG/5 ML UNIT DOSE CUP GT SCH (09:28)
[2024-03-30 17:45] LABS: HEMATOCRIT 27.3 % (32.4-45.2); HEMOGLOBIN 9.1 GM/dL (10.7-15.3); MCH 32.6 pg (25.7-33.7); MCHC 33.4 g/dl (32.0-36.0); MEAN CELL VOLUME 97.4 fl (80-96); MEAN PLT VOLUME 10.9 fl (7.5-11.1); PLATELET COUNT 131 10^3/uL (134-434); RDW 18.9 % (11.6-15.6); WHITE BLOOD COUNT 6.2 K/mm3 (4.0-10.0)
[2024-03-31 07:45] LABS: CALCIUM 7.4 mg/dL (8.5-10.1)
[2024-03-31 07:46] LABS: ALBUMIN 1.3 g/dl (3.4-5.0); BLOOD UREA NITROGEN 21.4 mg/dL (7-18)
[2024-03-31 07:49] LABS: CREATININE 0.4 mg/dL (0.55-1.3); PHOSPHOROUS 3.3 mg/dL (2.5-4.9)
[2024-03-31 07:51] LABS: BILIRUBIN,TOTAL 0.7 mg/dL (0.2-1); TOT PROT 4.4 g/dl (6.4-8.2)
[2024-03-31 07:52] LABS: BASO % 0.4 % (0-2.0); EOS % 1.7 % (0-4.5); HEMATOCRIT 26.1 % (32.4-45.2); HEMOGLOBIN 8.7 GM/dL (10.7-15.3); LYMPH % 9.1 % (8-40); MCH 32.4 pg (25.7-33.7); MCHC 33.5 g/dl (32.0-36.0); MEAN CELL VOLUME 96.8 fl (80-96); MEAN PLT VOLUME 11.6 fl (7.5-11.1); MONO % 2.6 % (3.8-10.2); NEUT % 86.2 % (42.8-82.8); PLATELET COUNT 137 10^3/uL (134-434); RDW 19.2 % (11.6-15.6); WHITE BLOOD COUNT 5.2 K/mm3 (4.0-10.0)
[2024-03-31] MEDS: MIDODRINE HCL 2.5 MG TABLET GT SCH (10:01)
[2024-03-31] MEDS: KCL 20 MEQ PREMIX BAG 20 MEQ/100 ML INFUS.BAG IVPB SCH (11:19)
[2024-04-01 07:24] LABS: BASO % 0.6 % (0-2.0); EOS % 2.6 % (0-4.5); HEMATOCRIT 29.4 % (32.4-45.2); HEMOGLOBIN 9.7 GM/dL (10.7-15.3); LYMPH % 12.2 % (8-40); MCH 32.2 pg (25.7-33.7); MEAN CELL VOLUME 97.4 fl (80-96); MEAN PLT VOLUME 10.6 fl (7.5-11.1); MONO % 2.7 % (3.8-10.2); NEUT % 81.9 % (42.8-82.8); PLATELET COUNT 165 10^3/uL (134-434); RBC 3.01 M/mm3 (3.60-5.2); RDW 19.2 % (11.6-15.6); WHITE BLOOD COUNT 3.9 K/mm3 (4.0-10.0)
[2024-04-01 07:45] LABS: POTASSIUM 3.6 mmol/L (3.5-5.1)
[2024-04-01 07:56] LABS: ALBUMIN 1.3 g/dl (3.4-5.0); BLOOD UREA NITROGEN 20.4 mg/dL (7-18); CALCIUM 7.3 mg/dL (8.5-10.1)
[2024-04-01 08:01] LABS: BILIRUBIN,TOTAL 0.6 mg/dL (0.2-1); CREATININE 0.3 mg/dL (0.55-1.3); TOT PROT 4.8 g/dl (6.4-8.2)
[2024-04-01] MEDS: POTASSIUM CHLORIDE ORAL LIQUID 20 MEQ/15 ML GT ONE (09:40)
[2024-04-02 09:59] LABS: BASO % 0.3 % (0-2.0); EOS % 3.2 % (0-4.5); HEMATOCRIT 26.2 % (32.4-45.2); HEMOGLOBIN 8.9 GM/dL (10.7-15.3); MCH 32.9 pg (25.7-33.7); MEAN CELL VOLUME 96.8 fl (80-96); MEAN PLT VOLUME 10.4 fl (7.5-11.1); MONO % 2.2 % (3.8-10.2); NEUT % 84.3 % (42.8-82.8); PLATELET COUNT 137 10^3/uL (134-434); RDW 18.8 % (11.6-15.6); WHITE BLOOD COUNT 3.3 K/mm3 (4.0-10.0)
[2024-04-02 10:25] LABS: POTASSIUM 3.4 mmol/L (3.5-5.1)
[2024-04-02 10:30] LABS: ALBUMIN 1.2 g/dl (3.4-5.0); CALCIUM 7.3 mg/dL (8.5-10.1)
[2024-04-02 10:31] LABS: BLOOD UREA NITROGEN 14.8 mg/dL (7-18)
[2024-04-02 10:34] LABS: PHOSPHOROUS 2.5 mg/dL (2.5-4.9)
[2024-04-02 10:35] LABS: BILIRUBIN,TOTAL 0.5 mg/dL (0.2-1); CREATININE 0.2 mg/dL (0.55-1.3)
[2024-04-02 10:37] LABS: TOT PROT 4.5 g/dl (6.4-8.2)
[2024-04-02] MEDS: LORazepam 2 MG/ML SDV VIAL IVPUSH ONE (11:10)
[2024-04-02] MEDS: POTASSIUM CHLORIDE ORAL LIQUID 20 MEQ/15 ML GT ONE (14:53)
[2024-04-02] MEDS: HEPARIN NA (PORCINE) 5,000 UNITS/ML 1ML VIAL SQ SCH (21:40)
[2024-04-03 06:37] LABS: HEMATOCRIT 26.8 % (32.4-45.2); HEMOGLOBIN 8.9 GM/dL (10.7-15.3); MCH 32.4 pg (25.7-33.7); MCHC 33.2 g/dl (32.0-36.0); MEAN CELL VOLUME 97.8 fl (80-96); MEAN PLT VOLUME 10.9 fl (7.5-11.1); PLATELET COUNT 145 10^3/uL (134-434); RBC 2.74 M/mm3 (3.60-5.2); RDW 18.7 % (11.6-15.6); WHITE BLOOD COUNT 3.7 K/mm3 (4.0-10.0)
[2024-04-03 06:48] LABS: POTASSIUM 3.8 mmol/L (3.5-5.1)
[2024-04-03 06:57] LABS: ALBUMIN 1.1 g/dl (3.4-5.0); BILIRUBIN,TOTAL 0.3 mg/dL (0.2-1); PHOSPHOROUS 2.5 mg/dL (2.5-4.9); TOT PROT 4.5 g/dl (6.4-8.2)
[2024-04-03 06:59] LABS: CALCIUM 7.5 mg/dL (8.5-10.1); CREATININE 0.2 mg/dL (0.55-1.3); MAGNESIUM 1.9 mg/dL (1.8-2.4)
[2024-04-03] MEDS: DEXTROSE 5%-0.45% SALINE 1,000 ML IV SCH (09:43)
[2024-04-04 06:29] LABS: HEMATOCRIT 26.3 % (32.4-45.2); HEMOGLOBIN 8.7 GM/dL (10.7-15.3); MCH 32.4 pg (25.7-33.7); MCHC 32.9 g/dl (32.0-36.0); MEAN CELL VOLUME 98.4 fl (80-96); MEAN PLT VOLUME 10.3 fl (7.5-11.1); PLATELET COUNT 162 10^3/uL (134-434); RBC 2.67 M/mm3 (3.60-5.2); WHITE BLOOD COUNT 3.5 K/mm3 (4.0-10.0)
[2024-04-04 06:53] LABS: POTASSIUM 3.9 mmol/L (3.5-5.1)
[2024-04-04 06:56] LABS: CALCIUM 7.9 mg/dL (8.5-10.1)
[2024-04-04 06:57] LABS: ALBUMIN 1.2 g/dl (3.4-5.0); BLOOD UREA NITROGEN 20.6 mg/dL (7-18); MAGNESIUM 1.9 mg/dL (1.8-2.4)
[2024-04-04 07:00] LABS: CREATININE 0.3 mg/dL (0.55-1.3); PHOSPHOROUS 2.4 mg/dL (2.5-4.9)
[2024-04-04 07:02] LABS: BILIRUBIN,TOTAL 0.3 mg/dL (0.2-1); TOT PROT 4.8 g/dl (6.4-8.2)
[2024-04-04] MEDS: ARTIFICIAL TEARS OPHTHALMIC DROPS OU PRN (09:07)
[2024-04-04] MEDS: ACETAMINOPHEN 650 MG/20.3 ML ORAL SOLUTION (CUPS) GT PRN (14:23)
[2024-04-05 06:24] LABS: HEMATOCRIT 24.7 % (32.4-45.2); HEMOGLOBIN 8.2 GM/dL (10.7-15.3); MCH 32.6 pg (25.7-33.7); MCHC 32.9 g/dl (32.0-36.0); MEAN PLT VOLUME 9.8 fl (7.5-11.1); PLATELET COUNT 170 10^3/uL (134-434); WHITE BLOOD COUNT 3.2 K/mm3 (4.0-10.0)
[2024-04-05 06:44] LABS: POTASSIUM 4.1 mmol/L (3.5-5.1)
[2024-04-05 06:49] LABS: ALBUMIN 1.1 g/dl (3.4-5.0); BLOOD UREA NITROGEN 23.7 mg/dL (7-18); CALCIUM 7.8 mg/dL (8.5-10.1)
[2024-04-05 06:52] LABS: PHOSPHOROUS 3.2 mg/dL (2.5-4.9)
[2024-04-05 06:53] LABS: CREATININE 0.3 mg/dL (0.55-1.3)
[2024-04-05 06:54] LABS: BILIRUBIN,TOTAL 0.2 mg/dL (0.2-1); TOT PROT 4.7 g/dl (6.4-8.2)
[2024-04-05] MEDS: FUROSEMIDE 40 MG/4 ML INJECTABLE VIAL IVPUSH ONE (10:20)
[2024-04-06] MEDS ORDERED: IPRATROPIUM BR 0.02% 0.5 MG/2.5 ML VIAL.NEB. NEB PRN (03:57)
[2024-04-06 04:45] LABS: POTASSIUM 3.6 mmol/L (3.5-5.1)
[2024-04-06 04:47] LABS: CALCIUM 7.7 mg/dL (8.5-10.1)
[2024-04-06 04:48] LABS: ALBUMIN 1.2 g/dl (3.4-5.0); BLOOD UREA NITROGEN 25.1 mg/dL (7-18); MAGNESIUM 1.9 mg/dL (1.8-2.4)
[2024-04-06 04:51] LABS: CREATININE 0.3 mg/dL (0.55-1.3); PHOSPHOROUS 3.6 mg/dL (2.5-4.9)
[2024-04-06 04:52] LABS: BILIRUBIN,TOTAL 0.4 mg/dL (0.2-1)
[2024-04-06 04:53] LABS: TOT PROT 5.4 g/dl (6.4-8.2)
[2024-04-06] MEDS: LACTATED RINGERS SOLUTION 1000 ML INFUS.BAG IV ONE ×2 (05:05→05:10)
[2024-04-06] MEDS: KCL 10 MEQ IVPB 10 MEQ/100 ML INFUS.BAG IVPB SCH (05:12)
[2024-04-06 06:48] LABS: HEMATOCRIT 22.3 % (32.4-45.2); HEMOGLOBIN 7.4 GM/dL (10.7-15.3); MCH 32.7 pg (25.7-33.7); MCHC 32.9 g/dl (32.0-36.0); MEAN CELL VOLUME 99.3 fl (80-96); MEAN PLT VOLUME 10.4 fl (7.5-11.1); PLATELET COUNT 141 10^3/uL (134-434); RBC 2.25 M/mm3 (3.60-5.2); RDW 18.6 % (11.6-15.6); WHITE BLOOD COUNT 3.7 K/mm3 (4.0-10.0)
[2024-04-06] MEDS: BANATROL PLUS POWDER PACKET PO SCH (15:27)
[2024-04-07 06:23] LABS: ARTERIAL BLD GAS O2 SATURATION 96.2 % (95-98); ARTERIAL BLOOD GAS BASE EXCESS 7.7 mmol/L (-2-2); ARTERIAL BLOOD GAS PO2 72.8 mmHg (80-100); ARTERIAL BLOOD GAS pH 7.537 (7.350-7.450)
[2024-04-07 06:25] LABS: ALLENS TEST POSITIVE; VENT MODE A/C; VENT RATE 15
[2024-04-07 07:01] LABS: HEMATOCRIT 24.4 % (32.4-45.2); MCH 32.6 pg (25.7-33.7); MCHC 32.9 g/dl (32.0-36.0); MEAN CELL VOLUME 99.1 fl (80-96); MEAN PLT VOLUME 10.4 fl (7.5-11.1); PLATELET COUNT 175 10^3/uL (134-434); RBC 2.46 M/mm3 (3.60-5.2); RDW 18.9 % (11.6-15.6); WHITE BLOOD COUNT 4.4 K/mm3 (4.0-10.0)
[2024-04-07 07:25] LABS: POTASSIUM 4.7 mmol/L (3.5-5.1)
[2024-04-07 07:30] LABS: ALBUMIN 1.1 g/dl (3.4-5.0); CALCIUM 7.8 mg/dL (8.5-10.1)
[2024-04-07 07:31] LABS: BLOOD UREA NITROGEN 23.1 mg/dL (7-18); MAGNESIUM 1.9 mg/dL (1.8-2.4)
[2024-04-07 07:33] LABS: PHOSPHOROUS 3.4 mg/dL (2.5-4.9)
[2024-04-07 07:34] LABS: CREATININE 0.2 mg/dL (0.55-1.3)
[2024-04-07 07:35] LABS: BILIRUBIN,TOTAL 0.5 mg/dL (0.2-1); TOT PROT 5.2 g/dl (6.4-8.2)
[2024-04-08 06:20] LABS: HEMATOCRIT 25.1 % (32.4-45.2); HEMOGLOBIN 8.2 GM/dL (10.7-15.3); MCH 32.8 pg (25.7-33.7); MCHC 32.9 g/dl (32.0-36.0); MEAN CELL VOLUME 99.9 fl (80-96); MEAN PLT VOLUME 10.1 fl (7.5-11.1); PLATELET COUNT 189 10^3/uL (134-434); RBC 2.51 M/mm3 (3.60-5.2); WHITE BLOOD COUNT 5.7 K/mm3 (4.0-10.0)
[2024-04-08 06:26] LABS: POTASSIUM 4.4 mmol/L (3.5-5.1)
[2024-04-08 06:30] LABS: CALCIUM 7.9 mg/dL (8.5-10.1)
[2024-04-08 06:31] LABS: ALBUMIN 1.1 g/dl (3.4-5.0)
[2024-04-08 06:34] LABS: CREATININE 0.3 mg/dL (0.55-1.3)
[2024-04-08 06:36] LABS: BILIRUBIN,TOTAL 0.3 mg/dL (0.2-1); TOT PROT 5.1 g/dl (6.4-8.2)
[2024-04-08 09:11] LABS: ANISOCYTOSIS 0; HELMET CELLS 0; HOWELL-JOLLY BODIES 0; MACROCYTOSIS 0; OVALOCYTE 0; ROULEAU 0; SICKELED CELLS 0; TARGET CELLS 0; TEAR DROP CELLS 0; TOXIC GRANULATION 0
[2024-04-09 07:55] LABS: HEMATOCRIT 27.2 % (32.4-45.2); HEMOGLOBIN 8.9 GM/dL (10.7-15.3); MCH 32.8 pg (25.7-33.7); MCHC 32.6 g/dl (32.0-36.0); MEAN CELL VOLUME 100.6 fl (80-96); MEAN PLT VOLUME 9.9 fl (7.5-11.1); PLATELET COUNT 218 10^3/uL (134-434); RDW 18.7 % (11.6-15.6); WHITE BLOOD COUNT 7.2 K/mm3 (4.0-10.0)
[2024-04-09 08:06] LABS: POTASSIUM 4.4 mmol/L (3.5-5.1)
[2024-04-09 08:16] LABS: ALBUMIN 1.2 g/dl (3.4-5.0); BLOOD UREA NITROGEN 23.1 mg/dL (7-18); MAGNESIUM 2.1 mg/dL (1.8-2.4)
[2024-04-09 08:19] LABS: CREATININE 0.3 mg/dL (0.55-1.3)
[2024-04-09 08:20] LABS: BILIRUBIN,TOTAL 0.4 mg/dL (0.2-1); TOT PROT 5.7 g/dl (6.4-8.2)
[2024-04-09 09:38] LABS: ANISOCYTOSIS 1+; MACROCYTOSIS 0
[2024-04-09] MEDS ORDERED: levETIRAcetam 500 MG/5 ML INJECTION VIAL IVPB SCH (10:57)
[2024-04-09] MEDS: levETIRAcetam 500 MG TABLET (FP) PO SCH (21:14)
[2024-04-10 07:49] LABS: HEMATOCRIT 21.6 % (32.4-45.2); MCH 32.4 pg (25.7-33.7); MCHC 32.5 g/dl (32.0-36.0); MEAN CELL VOLUME 99.7 fl (80-96); MEAN PLT VOLUME 9.6 fl (7.5-11.1); PLATELET COUNT 231 10^3/uL (134-434); RBC 2.16 M/mm3 (3.60-5.2); RDW 18.8 % (11.6-15.6); WHITE BLOOD COUNT 6.9 K/mm3 (4.0-10.0)
[2024-04-10 08:28] LABS: CALCIUM 7.7 mg/dL (8.5-10.1)
[2024-04-10 08:29] LABS: ALBUMIN 1.1 g/dl (3.4-5.0); BLOOD UREA NITROGEN 22.3 mg/dL (7-18); MAGNESIUM 2.2 mg/dL (1.8-2.4)
[2024-04-10 08:32] LABS: BILIRUBIN,TOTAL 0.3 mg/dL (0.2-1); CREATININE 0.3 mg/dL (0.55-1.3); TOT PROT 4.9 g/dl (6.4-8.2)
[2024-04-10] MEDS: levETIRAcetam 500 MG/5 ML INJECTION VIAL IVPB SCH ×2 (09:17→10:19)
[2024-04-10] MEDS: LORazepam 2 MG/ML SDV VIAL IVPUSH ONE (10:07)
[2024-04-10] MEDS: levETIRAcetam 500 MG/5 ML INJECTION VIAL IVPB ONE (10:16)
[2024-04-10 10:25] LABS: ANISOCYTOSIS 1+; MACROCYTOSIS 0
[2024-04-11 07:35] LABS: HEMATOCRIT 23.8 % (32.4-45.2); HEMOGLOBIN 7.8 GM/dL (10.7-15.3); MCH 32.8 pg (25.7-33.7); MCHC 32.9 g/dl (32.0-36.0); MEAN CELL VOLUME 99.5 fl (80-96); MEAN PLT VOLUME 9.5 fl (7.5-11.1); PLATELET COUNT 331 10^3/uL (134-434); RBC 2.39 M/mm3 (3.60-5.2); RDW 18.9 % (11.6-15.6); WHITE BLOOD COUNT 9.6 K/mm3 (4.0-10.0)
[2024-04-11 07:47] LABS: POTASSIUM 4.4 mmol/L (3.5-5.1)
[2024-04-11 07:51] LABS: BLOOD UREA NITROGEN 21.5 mg/dL (7-18); CALCIUM 7.9 mg/dL (8.5-10.1)
[2024-04-11 07:55] LABS: CREATININE 0.3 mg/dL (0.55-1.3)
[2024-04-12 07:51] LABS: HEMATOCRIT 24.1 % (32.4-45.2); MCH 32.6 pg (25.7-33.7); MEAN CELL VOLUME 98.6 fl (80-96); MEAN PLT VOLUME 9.5 fl (7.5-11.1); PLATELET COUNT 377 10^3/uL (134-434); RBC 2.45 M/mm3 (3.60-5.2); RDW 18.3 % (11.6-15.6)
[2024-04-12 07:52] LABS: INR 0.93 (0.83-1.09); PROTHROMBIN TIME (PATIENT) 10.7 SEC (9.7-13.0)
[2024-04-12 08:01] LABS: POTASSIUM 4.6 mmol/L (3.5-5.1)
[2024-04-12 08:06] LABS: CALCIUM 7.9 mg/dL (8.5-10.1)
[2024-04-12 08:07] LABS: ALBUMIN 1.2 g/dl (3.4-5.0)
[2024-04-12 08:09] LABS: CREATININE 0.3 mg/dL (0.55-1.3)
[2024-04-12 08:11] LABS: BILIRUBIN,TOTAL 0.4 mg/dL (0.2-1); TOT PROT 5.4 g/dl (6.4-8.2)
[2024-04-12] MEDS ORDERED: MIDAZOLAM HCL 5 MG/1 ML Single Dose Vial ONE (09:01)
[2024-04-12] MEDS ORDERED: ROCURONIUM BROMIDE 50 MG/5 ML VIAL ONE (09:02)
[2024-04-12] MEDS: ROCURONIUM BROMIDE 50 MG/5 ML VIAL IVPUSH ONE (09:35)
[2024-04-12] MEDS: MIDAZOLAM HCL 2 MG/2 ML SINGLE DOSE VIAL IVPUSH ONE (09:40)
[2024-04-14] MEDS: SODIUM CHLORIDE 1,000 ML IV STA (17:15)
[2024-04-14 18:03] LABS: BASO % 1.2 % (0-2.0); EOS % 0.5 % (0-4.5); HEMATOCRIT 22.5 % (32.4-45.2); HEMOGLOBIN 7.4 GM/dL (10.7-15.3); LYMPH % 13.6 % (8-40); MCH 32.9 pg (25.7-33.7); MCHC 32.8 g/dl (32.0-36.0); MEAN CELL VOLUME 100.3 fl (80-96); MEAN PLT VOLUME 8.5 fl (7.5-11.1); MONO % 14.3 % (3.8-10.2); NEUT % 70.4 % (42.8-82.8); PLATELET COUNT 568 10^3/uL (134-434); RBC 2.24 M/mm3 (3.60-5.2); RDW 18.3 % (11.6-15.6); WHITE BLOOD COUNT 9.9 K/mm3 (4.0-10.0)
[2024-04-14 18:22] LABS: POTASSIUM 3.5 mmol/L (3.5-5.1)
[2024-04-14 18:24] LABS: ALBUMIN 1.2 g/dl (3.4-5.0); BLOOD UREA NITROGEN 24.2 mg/dL (7-18); CALCIUM 7.3 mg/dL (8.5-10.1); MAGNESIUM 2.1 mg/dL (1.8-2.4)
[2024-04-14 18:27] LABS: CREATININE 0.3 mg/dL (0.55-1.3)
[2024-04-14 18:28] LABS: PHOSPHOROUS 3.2 mg/dL (2.5-4.9)
[2024-04-14 18:29] LABS: BILIRUBIN,TOTAL 0.2 mg/dL (0.2-1); TOT PROT 5.1 g/dl (6.4-8.2)
[2024-04-15 07:49] LABS: BASO % 1.1 % (0-2.0); EOS % 0.3 % (0-4.5); HEMATOCRIT 23.9 % (32.4-45.2); HEMOGLOBIN 7.8 GM/dL (10.7-15.3); LYMPH % 10.4 % (8-40); MCH 32.6 pg (25.7-33.7); MCHC 32.4 g/dl (32.0-36.0); MEAN CELL VOLUME 100.5 fl (80-96); MEAN PLT VOLUME 8.7 fl (7.5-11.1); MONO % 9.6 % (3.8-10.2); NEUT % 78.6 % (42.8-82.8); PLATELET COUNT 671 10^3/uL (134-434); RBC 2.38 M/mm3 (3.60-5.2); RDW 18.4 % (11.6-15.6); WHITE BLOOD COUNT 11.8 K/mm3 (4.0-10.0)
[2024-04-15 08:03] LABS: POTASSIUM 3.8 mmol/L (3.5-5.1)
[2024-04-15 08:08] LABS: ALBUMIN 1.3 g/dl (3.4-5.0); CALCIUM 7.6 mg/dL (8.5-10.1)
[2024-04-15 08:11] LABS: CREATININE 0.3 mg/dL (0.55-1.3)
[2024-04-15 08:12] LABS: BILIRUBIN,TOTAL 0.3 mg/dL (0.2-1); TOT PROT 5.7 g/dl (6.4-8.2)
[2024-04-15 08:32] LABS: ANISOCYTOSIS 2+; MACROCYTOSIS 1+
[2024-04-15] MEDS: PIPERACILLIN/TAZOB 3.375 GM 3.375 GM in DEXTROSE 5%-WATER - 50 ML IVPB SCH ×3 (10:13→17:14)
[2024-04-16 07:20] LABS: HEMOGLOBIN 8.3 GM/dL (10.7-15.3); MCHC 33.1 g/dl (32.0-36.0); MEAN CELL VOLUME 99.7 fl (80-96); MEAN PLT VOLUME 8.6 fl (7.5-11.1); PLATELET COUNT 735 10^3/uL (134-434); RBC 2.51 M/mm3 (3.60-5.2); RDW 18.8 % (11.6-15.6); WHITE BLOOD COUNT 12.1 K/mm3 (4.0-10.0)
[2024-04-16 07:41] LABS: POTASSIUM 3.8 mmol/L (3.5-5.1)
[2024-04-16 07:44] LABS: CALCIUM 7.9 mg/dL (8.5-10.1)
[2024-04-16 07:48] LABS: CREATININE 0.4 mg/dL (0.55-1.3)
[2024-04-16 11:13] LABS: ANISOCYTOSIS 0; HELMET CELLS 0; HOWELL-JOLLY BODIES 0; MACROCYTOSIS 0; OVALOCYTE 0; ROULEAU 0; SICKELED CELLS 0; TARGET CELLS 0; TEAR DROP CELLS 0; TOXIC GRANULATION 0
[2024-04-16] MEDS ORDERED: PIPERACILLIN/TAZOBACTAM 3.375 GM VIAL IVPB ONE (17:03)
[2024-04-16] MEDS: SODIUM HYPOCHLORITE 0.25%- 473 ML BULK BOTTLE TP SCH (21:41)
[2024-04-17 07:24] LABS: HEMATOCRIT 23.6 % (32.4-45.2); HEMOGLOBIN 7.7 GM/dL (10.7-15.3); MCH 32.4 pg (25.7-33.7); MCHC 32.5 g/dl (32.0-36.0); MEAN CELL VOLUME 99.7 fl (80-96); MEAN PLT VOLUME 8.3 fl (7.5-11.1); PLATELET COUNT 749 10^3/uL (134-434); RBC 2.37 M/mm3 (3.60-5.2); RDW 18.6 % (11.6-15.6); WHITE BLOOD COUNT 16.9 K/mm3 (4.0-10.0)
[2024-04-17 07:39] LABS: POTASSIUM 3.6 mmol/L (3.5-5.1)
[2024-04-17 07:44] LABS: CALCIUM 7.7 mg/dL (8.5-10.1)
[2024-04-17 07:45] LABS: BLOOD UREA NITROGEN 24.5 mg/dL (7-18)
[2024-04-17 07:47] LABS: CREATININE 0.3 mg/dL (0.55-1.3)
[2024-04-18] MEDS: AMINO ACIDS/PROTEIN HYDROLYS 30 ML LIQUID.PKT GT SCH (08:22)
[2024-04-18 10:59] LABS: HEMATOCRIT 20.8 % (32.4-45.2); MCH 30.9 pg (25.7-33.7); MEAN CELL VOLUME 99.9 fl (80-96); MEAN PLT VOLUME 8.5 fl (7.5-11.1); PLATELET COUNT 622 10^3/uL (134-434); RBC 2.08 M/mm3 (3.60-5.2); RDW 19.2 % (11.6-15.6); WHITE BLOOD COUNT 13.9 K/mm3 (4.0-10.0)
[2024-04-18 11:06] LABS: HEMOGLOBIN 6.4 GM/dL (10.7-15.3)
[2024-04-18] MEDS: HEPARIN NA (PORCINE) 5,000 UNITS/ML 1ML VIAL SQ SCH (11:09)
[2024-04-18] MEDS: PANTOPRAZOLE SODIUM 40 MG VIAL IVPUSH SCH (11:09)
[2024-04-18] MEDS: ASCORBIC ACID 500 MG/5 ML UNIT DOSE CUP GT SCH (11:10)
[2024-04-18] MEDS: levETIRAcetam 500 MG/5 ML INJECTION VIAL IVPB SCH (11:11)
[2024-04-18 11:21] LABS: POTASSIUM 3.3 mmol/L (3.5-5.1)
[2024-04-18 11:30] LABS: CALCIUM 7.5 mg/dL (8.5-10.1)
[2024-04-18 11:31] LABS: BLOOD UREA NITROGEN 26.1 mg/dL (7-18)
[2024-04-18 11:34] LABS: CREATININE 0.3 mg/dL (0.55-1.3)
[2024-04-18] MEDS: ZINC OXIDE 20% TOPICAL OINTMENT 30 GM TUBE TP SCH (16:20)
[2024-04-18] MEDS: BANATROL PLUS POWDER PACKET PO SCH (16:33)
[2024-04-19 09:24] LABS: HEMATOCRIT 28.5 % (32.4-45.2); HEMOGLOBIN 9.6 GM/dL (10.7-15.3); MCH 31.7 pg (25.7-33.7); MCHC 33.6 g/dl (32.0-36.0); MEAN CELL VOLUME 94.2 fl (80-96); MEAN PLT VOLUME 8.3 fl (7.5-11.1); PLATELET COUNT 680 10^3/uL (134-434); RBC 3.02 M/mm3 (3.60-5.2); RDW 17.9 % (11.6-15.6); WHITE BLOOD COUNT 12.1 K/mm3 (4.0-10.0)
[2024-04-19 09:56] LABS: POTASSIUM 3.8 mmol/L (3.5-5.1)
[2024-04-19 09:57] LABS: CALCIUM 7.9 mg/dL (8.5-10.1)
[2024-04-19 09:58] LABS: BLOOD UREA NITROGEN 24.7 mg/dL (7-18); MAGNESIUM 2.2 mg/dL (1.8-2.4)
[2024-04-19 10:01] LABS: CREATININE 0.4 mg/dL (0.55-1.3); PHOSPHOROUS 3.4 mg/dL (2.5-4.9)
[2024-04-20 10:36] LABS: HEMATOCRIT 29.2 % (32.4-45.2); HEMOGLOBIN 9.8 GM/dL (10.7-15.3); MCH 31.7 pg (25.7-33.7); MCHC 33.7 g/dl (32.0-36.0); MEAN CELL VOLUME 94.2 fl (80-96); MEAN PLT VOLUME 8.1 fl (7.5-11.1); PLATELET COUNT 665 10^3/uL (134-434); RDW 17.8 % (11.6-15.6); WHITE BLOOD COUNT 12.8 K/mm3 (4.0-10.0)
[2024-04-20 10:50] LABS: POTASSIUM 3.9 mmol/L (3.5-5.1)
[2024-04-20 11:04] LABS: BLOOD UREA NITROGEN 24.1 mg/dL (7-18)
[2024-04-20 11:05] LABS: CREATININE 0.3 mg/dL (0.55-1.3); PHOSPHOROUS 3.5 mg/dL (2.5-4.9)
[2024-04-20 11:06] LABS: MAGNESIUM 2.2 mg/dL (1.8-2.4)
[2024-04-20] MEDS: levETIRAcetam 500 MG/5 ML ORAL SOLUTION (UNIT-DOSE CUPS) GT SCH (11:39)
[2024-04-20] MEDS: ACETAMINOPHEN 650 MG/20.3 ML ORAL SOLUTION (CUPS) GT PRN (15:26)
[2024-04-21 09:00] LABS: HEMATOCRIT 27.7 % (32.4-45.2); MCHC 32.3 g/dl (32.0-36.0); MEAN PLT VOLUME 8.3 fl (7.5-11.1); PLATELET COUNT 622 10^3/uL (134-434); RBC 2.89 M/mm3 (3.60-5.2); WHITE BLOOD COUNT 13.5 K/mm3 (4.0-10.0)
[2024-04-21 09:33] LABS: POTASSIUM 4.3 mmol/L (3.5-5.1)
[2024-04-21 10:01] LABS: CALCIUM 7.7 mg/dL (8.5-10.1); MAGNESIUM 2.2 mg/dL (1.8-2.4)
[2024-04-21 10:02] LABS: BLOOD UREA NITROGEN 24.2 mg/dL (7-18)
[2024-04-21 10:05] LABS: CREATININE 0.3 mg/dL (0.55-1.3); PHOSPHOROUS 3.4 mg/dL (2.5-4.9)
[2024-04-22 08:11] LABS: HEMATOCRIT 28.8 % (32.4-45.2); HEMOGLOBIN 9.3 GM/dL (10.7-15.3); MCH 31.9 pg (25.7-33.7); MCHC 32.4 g/dl (32.0-36.0); MEAN CELL VOLUME 98.3 fl (80-96); MEAN PLT VOLUME 8.1 fl (7.5-11.1); PLATELET COUNT 648 10^3/uL (134-434); RBC 2.92 M/mm3 (3.60-5.2); RDW 18.2 % (11.6-15.6); WHITE BLOOD COUNT 14.4 K/mm3 (4.0-10.0)
[2024-04-22 08:18] LABS: POTASSIUM 3.8 mmol/L (3.5-5.1)
[2024-04-22 08:19] LABS: BLOOD UREA NITROGEN 24.9 mg/dL (7-18); CALCIUM 7.9 mg/dL (8.5-10.1)
[2024-04-22 08:20] LABS: MAGNESIUM 2.3 mg/dL (1.8-2.4)
[2024-04-22 08:23] LABS: CREATININE 0.4 mg/dL (0.55-1.3); PHOSPHOROUS 3.3 mg/dL (2.5-4.9)
[2024-04-23 10:52] LABS: HEMATOCRIT 30.6 % (32.4-45.2); HEMOGLOBIN 9.9 GM/dL (10.7-15.3); MCH 31.5 pg (25.7-33.7); MCHC 32.4 g/dl (32.0-36.0); MEAN CELL VOLUME 97.2 fl (80-96); MEAN PLT VOLUME 7.8 fl (7.5-11.1); PLATELET COUNT 660 10^3/uL (134-434); RBC 3.15 M/mm3 (3.60-5.2); RDW 18.1 % (11.6-15.6); WHITE BLOOD COUNT 14.7 K/mm3 (4.0-10.0)
[2024-04-23 11:03] LABS: POTASSIUM 4.5 mmol/L (3.5-5.1)
[2024-04-23 11:13] LABS: CALCIUM 8.2 mg/dL (8.5-10.1)
[2024-04-23 11:14] LABS: ALBUMIN 1.2 g/dl (3.4-5.0); BLOOD UREA NITROGEN 26.6 mg/dL (7-18); MAGNESIUM 2.4 mg/dL (1.8-2.4)
[2024-04-23 11:17] LABS: CREATININE 0.4 mg/dL (0.55-1.3); PHOSPHOROUS 4.1 mg/dL (2.5-4.9)
[2024-04-23 11:18] LABS: BILIRUBIN,TOTAL 0.2 mg/dL (0.2-1)
[2024-04-23 11:19] LABS: ANISOCYTOSIS 0; MACROCYTOSIS 0
[2024-04-23] MEDS ORDERED: VANCOMYCIN 1 GM PREMIX - 1 GM/200 ML BAG IVPB SCH (18:45)
[2024-04-23] MEDS: VANCOMYCIN/WATER FOR INJ (PEG) 1 GM/200 ML BAG IVPB SCH (19:06)
[2024-04-24 09:55] LABS: INR 0.94 (0.83-1.09); PROTHROMBIN TIME (PATIENT) 10.6 SEC (9.7-13.0)
[2024-04-24 09:59] LABS: HEMATOCRIT 24.8 % (32.4-45.2); HEMOGLOBIN 8.4 GM/dL (10.7-15.3); MCHC 33.7 g/dl (32.0-36.0); MEAN CELL VOLUME 100.7 fl (80-96); PLATELET COUNT 588 10^3/uL (134-434); RBC 2.46 M/mm3 (3.60-5.2); RDW 17.1 % (11.6-15.6); WHITE BLOOD COUNT 13.5 K/mm3 (4.0-10.0)
[2024-04-24 10:13] LABS: POTASSIUM 4.3 mmol/L (3.5-5.1)
[2024-04-24 10:16] LABS: CALCIUM 7.9 mg/dL (8.5-10.1)
[2024-04-24 10:17] LABS: ALBUMIN 1.1 g/dl (3.4-5.0); BLOOD UREA NITROGEN 25.3 mg/dL (7-18); MAGNESIUM 2.2 mg/dL (1.8-2.4)
[2024-04-24 10:21] LABS: CREATININE 0.3 mg/dL (0.55-1.3); PHOSPHOROUS 3.6 mg/dL (2.5-4.9)
[2024-04-24 10:22] LABS: BILIRUBIN,TOTAL 0.7 mg/dL (0.2-1); TOT PROT 5.6 g/dl (6.4-8.2)
[2024-04-24 11:00] LABS: ANISOCYTOSIS 1+; MACROCYTOSIS 1+; TEAR DROP CELLS 1+
[2024-04-24] MEDS: THIAMINE 100 MG TABLET NGT SCH (22:05)
[2024-04-24] MEDS: FOLIC ACID 1 MG TABLET (FP) GT SCH (22:05)
[2024-04-24] MEDS: VANCOMYCIN/WATER FOR INJ (PEG) 1,000 MG/200 ML BAG IVPB SCH (23:49)
[2024-04-25 09:22] LABS: BASO % 0.5 % (0-2.0); EOS % 3.3 % (0-4.5); HEMATOCRIT 26.6 % (32.4-45.2); HEMOGLOBIN 8.6 GM/dL (10.7-15.3); LYMPH % 9.1 % (8-40); MCH 32.7 pg (25.7-33.7); MCHC 32.5 g/dl (32.0-36.0); MEAN CELL VOLUME 100.7 fl (80-96); NEUT % 77.1 % (42.8-82.8); PLATELET COUNT 626 10^3/uL (134-434); RBC 2.64 M/mm3 (3.60-5.2); RDW 17.7 % (11.6-15.6); WHITE BLOOD COUNT 13.6 K/mm3 (4.0-10.0)
[2024-04-25 09:45] LABS: CALCIUM 7.9 mg/dL (8.5-10.1)
[2024-04-25 09:46] LABS: ALBUMIN 1.1 g/dl (3.4-5.0); BLOOD UREA NITROGEN 23.7 mg/dL (7-18); MAGNESIUM 2.3 mg/dL (1.8-2.4)
[2024-04-25 09:47] LABS: CREATININE 0.4 mg/dL (0.55-1.3)
[2024-04-25 09:49] LABS: BILIRUBIN,TOTAL 0.2 mg/dL (0.2-1); PHOSPHOROUS 3.3 mg/dL (2.5-4.9); TOT PROT 5.8 g/dl (6.4-8.2)
[2024-04-26 10:07] LABS: BASO % 0.2 % (0-2.0); EOS % 4.3 % (0-4.5); HEMATOCRIT 27.8 % (32.4-45.2); LYMPH % 12.1 % (8-40); MCH 31.7 pg (25.7-33.7); MCHC 32.4 g/dl (32.0-36.0); MEAN CELL VOLUME 97.7 fl (80-96); MEAN PLT VOLUME 7.7 fl (7.5-11.1); MONO % 10.4 % (3.8-10.2); PLATELET COUNT 607 10^3/uL (134-434); RBC 2.85 M/mm3 (3.60-5.2); RDW 17.8 % (11.6-15.6); WHITE BLOOD COUNT 14.5 K/mm3 (4.0-10.0)
[2024-04-26 10:20] LABS: INR 0.96 (0.83-1.09); PROTHROMBIN TIME (PATIENT) 10.9 SEC (9.7-13.0)
[2024-04-26 10:23] LABS: POTASSIUM 3.7 mmol/L (3.5-5.1)
[2024-04-26 10:25] LABS: CALCIUM 7.9 mg/dL (8.5-10.1)
[2024-04-26 10:26] LABS: ALBUMIN 1.1 g/dl (3.4-5.0); BLOOD UREA NITROGEN 20.7 mg/dL (7-18); MAGNESIUM 2.2 mg/dL (1.8-2.4)
[2024-04-26 10:28] LABS: CREATININE 0.4 mg/dL (0.55-1.3)
[2024-04-26 10:30] LABS: BILIRUBIN,TOTAL 0.5 mg/dL (0.2-1); TOT PROT 5.7 g/dl (6.4-8.2)
[2024-04-26] MEDS: DEXTROSE 5%-0.45% SALINE 1,000 ML IV SCH (14:04)
[2024-04-27 09:56] LABS: BASO % 0.5 % (0-2.0); EOS % 4.4 % (0-4.5); HEMATOCRIT 25.9 % (32.4-45.2); HEMOGLOBIN 8.5 GM/dL (10.7-15.3); LYMPH % 9.3 % (8-40); MCH 31.9 pg (25.7-33.7); MCHC 32.8 g/dl (32.0-36.0); MEAN CELL VOLUME 97.2 fl (80-96); MEAN PLT VOLUME 7.8 fl (7.5-11.1); MONO % 10.1 % (3.8-10.2); NEUT % 75.7 % (42.8-82.8); PLATELET COUNT 596 10^3/uL (134-434); RBC 2.67 M/mm3 (3.60-5.2); RDW 17.3 % (11.6-15.6); WHITE BLOOD COUNT 14.2 K/mm3 (4.0-10.0)
[2024-04-27 10:20] LABS: POTASSIUM 3.5 mmol/L (3.5-5.1)
[2024-04-27 10:28] LABS: ALBUMIN 1.2 g/dl (3.4-5.0); BLOOD UREA NITROGEN 15.6 mg/dL (7-18); MAGNESIUM 2.2 mg/dL (1.8-2.4)
[2024-04-27 10:29] LABS: BILIRUBIN,TOTAL 0.4 mg/dL (0.2-1); TOT PROT 5.8 g/dl (6.4-8.2)
[2024-04-27 10:31] LABS: CREATININE 0.3 mg/dL (0.55-1.3); PHOSPHOROUS 3.3 mg/dL (2.5-4.9)
[2024-04-27] MEDS: FUROSEMIDE 40 MG/4 ML INJECTABLE VIAL IVPUSH ONE (13:00)
[2024-04-27] MEDS ORDERED: AMINO ACIDS 4.25%/D5W 1,000 ML IV SCH (17:45)
[2024-04-28] MEDS ORDERED: AMINO ACIDS 4.25%/D5W 1,000 ML IV SCH (01:15)
[2024-04-28 08:30] LABS: BASO % 0.7 % (0-2.0); EOS % 6.3 % (0-4.5); HEMATOCRIT 25.4 % (32.4-45.2); HEMOGLOBIN 8.2 GM/dL (10.7-15.3); LYMPH % 11.8 % (8-40); MCH 31.9 pg (25.7-33.7); MCHC 32.5 g/dl (32.0-36.0); MEAN CELL VOLUME 98.2 fl (80-96); MEAN PLT VOLUME 7.8 fl (7.5-11.1); MONO % 9.7 % (3.8-10.2); NEUT % 71.5 % (42.8-82.8); PLATELET COUNT 570 10^3/uL (134-434); RBC 2.58 M/mm3 (3.60-5.2); RDW 17.8 % (11.6-15.6); WHITE BLOOD COUNT 10.7 K/mm3 (4.0-10.0)
[2024-04-28 08:49] LABS: CHLORIDE 112 mmol/L (98-107); SODIUM 145 mmol/L (136-145)
[2024-04-28 08:52] LABS: ALBUMIN 1.1 g/dl (3.4-5.0); CO2 25 mmol/L (21-32); GLUCOSE,RANDOM 126 mg/dL (74-106)
[2024-04-28 08:53] LABS: ANION GAP 8 mmol/L (4-13); POTASSIUM 2.9 mmol/L (3.5-5.1)
[2024-04-28 08:55] LABS: CREATININE 0.3 mg/dL (0.55-1.3); PHOSPHOROUS 2.7 mg/dL (2.5-4.9); SGOT/AST 24 U/L (15-37); SGPT/ALT 20 U/L (13-61)
[2024-04-28 08:57] LABS: BILIRUBIN,TOTAL 0.2 mg/dL (0.2-1); TOT PROT 5.4 g/dl (6.4-8.2)
[2024-04-28 08:58] LABS: ALK PHOS 167 U/L (45-117)
[2024-04-28] MEDS: POTASSIUM CHLORIDE ORAL LIQUID 20 MEQ/15 ML GT SCH (09:36)
[2024-04-28] MEDS: KCL 10 MEQ IVPB 10 MEQ/100 ML INFUS.BAG IVPB SCH (09:38)
[2024-04-29 09:19] LABS: BASO % 0.3 % (0-2.0); HEMATOCRIT 26.4 % (32.4-45.2); HEMOGLOBIN 8.3 GM/dL (10.7-15.3); LYMPH % 10.1 % (8-40); MCH 30.9 pg (25.7-33.7); MCHC 31.6 g/dl (32.0-36.0); MEAN CELL VOLUME 97.9 fl (80-96); MEAN PLT VOLUME 7.8 fl (7.5-11.1); NEUT % 72.6 % (42.8-82.8); PLATELET COUNT 570 10^3/uL (134-434); RDW 18.2 % (11.6-15.6); WHITE BLOOD COUNT 12.1 K/mm3 (4.0-10.0)
[2024-04-29 09:50] LABS: POTASSIUM 4.4 mmol/L (3.5-5.1)
[2024-04-29 09:55] LABS: BLOOD UREA NITROGEN 15.4 mg/dL (7-18)
[2024-04-29 09:56] LABS: ALBUMIN 1.2 g/dl (3.4-5.0)
[2024-04-29 09:58] LABS: BILIRUBIN,TOTAL 0.3 mg/dL (0.2-1)
[2024-04-29 09:59] LABS: CREATININE 0.3 mg/dL (0.55-1.3)
[2024-04-29 10:00] LABS: TOT PROT 5.4 g/dl (6.4-8.2)
[2024-04-29] MEDS: SODIUM PHOSPHATE - 15 MM in SODIUM CHLORIDE 250 ML IVPB ONE (12:28)
[2024-04-30 09:10] LABS: BASO % 0.3 % (0-2.0); EOS % 7.5 % (0-4.5); HEMATOCRIT 28.6 % (32.4-45.2); HEMOGLOBIN 9.1 GM/dL (10.7-15.3); LYMPH % 14.6 % (8-40); MCH 31.2 pg (25.7-33.7); MCHC 31.9 g/dl (32.0-36.0); MEAN CELL VOLUME 97.9 fl (80-96); MEAN PLT VOLUME 8.3 fl (7.5-11.1); MONO % 9.9 % (3.8-10.2); NEUT % 67.7 % (42.8-82.8); PLATELET COUNT 557 10^3/uL (134-434); RBC 2.93 M/mm3 (3.60-5.2); RDW 18.5 % (11.6-15.6); WHITE BLOOD COUNT 11.6 K/mm3 (4.0-10.0)
[2024-04-30 09:24] LABS: POTASSIUM 4.5 mmol/L (3.5-5.1)
[2024-04-30 09:27] LABS: CALCIUM 8.2 mg/dL (8.5-10.1)
[2024-04-30 09:28] LABS: ALBUMIN 1.2 g/dl (3.4-5.0); BLOOD UREA NITROGEN 16.6 mg/dL (7-18); MAGNESIUM 2.1 mg/dL (1.8-2.4)
[2024-04-30 09:31] LABS: CREATININE 0.3 mg/dL (0.55-1.3); PHOSPHOROUS 3.1 mg/dL (2.5-4.9)
[2024-04-30 09:32] LABS: BILIRUBIN,TOTAL 0.3 mg/dL (0.2-1); TOT PROT 5.9 g/dl (6.4-8.2)
[2024-05-01] MEDS: MULTIVIT-MINERALS ORAL LIQUID PEG SCH (09:16)
[2024-05-01 10:54] LABS: BASO % 0.4 % (0-2.0); EOS % 9.1 % (0-4.5); HEMATOCRIT 27.4 % (32.4-45.2); HEMOGLOBIN 8.7 GM/dL (10.7-15.3); LYMPH % 16.3 % (8-40); MCH 31.2 pg (25.7-33.7); MCHC 31.7 g/dl (32.0-36.0); MEAN CELL VOLUME 98.3 fl (80-96); MEAN PLT VOLUME 7.9 fl (7.5-11.1); MONO % 9.5 % (3.8-10.2); NEUT % 64.7 % (42.8-82.8); PLATELET COUNT 525 10^3/uL (134-434); RBC 2.79 M/mm3 (3.60-5.2); RDW 18.5 % (11.6-15.6)
[2024-05-01 11:13] LABS: POTASSIUM 4.1 mmol/L (3.5-5.1)
[2024-05-01 11:15] LABS: CALCIUM 8.1 mg/dL (8.5-10.1)
[2024-05-01 11:16] LABS: ALBUMIN 1.2 g/dl (3.4-5.0); BLOOD UREA NITROGEN 18.2 mg/dL (7-18); MAGNESIUM 2.1 mg/dL (1.8-2.4)
[2024-05-01 11:18] LABS: CREATININE 0.3 mg/dL (0.55-1.3); PHOSPHOROUS 3.3 mg/dL (2.5-4.9)
[2024-05-01 11:20] LABS: BILIRUBIN,TOTAL 0.2 mg/dL (0.2-1); TOT PROT 5.8 g/dl (6.4-8.2)
[2024-05-02 09:27] LABS: BASO % 0.7 % (0-2.0); EOS % 5.4 % (0-4.5); HEMATOCRIT 24.1 % (32.4-45.2); HEMOGLOBIN 7.8 GM/dL (10.7-15.3); LYMPH % 14.2 % (8-40); MCH 31.9 pg (25.7-33.7); MCHC 32.3 g/dl (32.0-36.0); MEAN CELL VOLUME 98.7 fl (80-96); MEAN PLT VOLUME 8.2 fl (7.5-11.1); MONO % 9.1 % (3.8-10.2); NEUT % 70.6 % (42.8-82.8); PLATELET COUNT 465 10^3/uL (134-434); RBC 2.44 M/mm3 (3.60-5.2); RDW 18.1 % (11.6-15.6); WHITE BLOOD COUNT 12.9 K/mm3 (4.0-10.0)
[2024-05-02 09:50] LABS: POTASSIUM 4.2 mmol/L (3.5-5.1)
[2024-05-02 09:54] LABS: ALBUMIN 1.2 g/dl (3.4-5.0); BLOOD UREA NITROGEN 19.8 mg/dL (7-18); CALCIUM 7.9 mg/dL (8.5-10.1)
[2024-05-02 09:57] LABS: CREATININE 0.3 mg/dL (0.55-1.3)
[2024-05-02 09:58] LABS: BILIRUBIN,TOTAL 0.4 mg/dL (0.2-1); PHOSPHOROUS 3.4 mg/dL (2.5-4.9); TOT PROT 5.8 g/dl (6.4-8.2)
[2024-05-02] MEDS: COLLAGENASE CLOSTRIDIUM HIST. 30 GRAMS TUBE TP SCH (12:12)
[2024-05-03 09:51] LABS: HEMOGLOBIN 8.2 GM/dL (10.7-15.3); MCH 32.3 pg (25.7-33.7); MCHC 32.7 g/dl (32.0-36.0); MEAN CELL VOLUME 98.8 fl (80-96); MEAN PLT VOLUME 7.7 fl (7.5-11.1); PLATELET COUNT 444 10^3/uL (134-434); RBC 2.53 M/mm3 (3.60-5.2); RDW 17.9 % (11.6-15.6); WHITE BLOOD COUNT 11.4 K/mm3 (4.0-10.0)
[2024-05-03 10:31] LABS: CALCIUM 8.1 mg/dL (8.5-10.1); POTASSIUM 4.2 mmol/L (3.5-5.1)
[2024-05-03 10:36] LABS: CREATININE 0.3 mg/dL (0.55-1.3)
[2024-05-05 08:48] LABS: HEMATOCRIT 25.5 % (32.4-45.2); HEMOGLOBIN 8.3 GM/dL (10.7-15.3); MCH 32.4 pg (25.7-33.7); MCHC 32.6 g/dl (32.0-36.0); MEAN CELL VOLUME 99.3 fl (80-96); PLATELET COUNT 411 10^3/uL (134-434); RBC 2.57 M/mm3 (3.60-5.2); RDW 18.9 % (11.6-15.6); WHITE BLOOD COUNT 11.6 K/mm3 (4.0-10.0)
[2024-05-05 09:07] LABS: POTASSIUM 4.5 mmol/L (3.5-5.1)
[2024-05-05 09:10] LABS: CALCIUM 8.1 mg/dL (8.5-10.1)
[2024-05-05 09:11] LABS: ALBUMIN 1.2 g/dl (3.4-5.0); BLOOD UREA NITROGEN 20.5 mg/dL (7-18); MAGNESIUM 2.2 mg/dL (1.8-2.4)
[2024-05-05 09:14] LABS: CREATININE 0.3 mg/dL (0.55-1.3); PHOSPHOROUS 3.8 mg/dL (2.5-4.9)
[2024-05-05 09:15] LABS: BILIRUBIN,TOTAL 0.3 mg/dL (0.2-1); TOT PROT 6.4 g/dl (6.4-8.2)
[2024-05-05 09:37] LABS: ANISOCYTOSIS 0; HELMET CELLS 0; HOWELL-JOLLY BODIES 0; MACROCYTOSIS 0; OVALOCYTE 0; ROULEAU 0; SICKELED CELLS 0; TARGET CELLS 0; TEAR DROP CELLS 0; TOXIC GRANULATION 0
[2024-05-07 08:17] LABS: BASO % 0.5 % (0-2.0); EOS % 9.1 % (0-4.5); HEMATOCRIT 23.6 % (32.4-45.2); HEMOGLOBIN 7.9 GM/dL (10.7-15.3); LYMPH % 12.9 % (8-40); MCH 32.7 pg (25.7-33.7); MCHC 33.3 g/dl (32.0-36.0); MEAN CELL VOLUME 98.1 fl (80-96); MEAN PLT VOLUME 7.3 fl (7.5-11.1); MONO % 11.2 % (3.8-10.2); NEUT % 66.3 % (42.8-82.8); PLATELET COUNT 372 10^3/uL (134-434); RBC 2.41 M/mm3 (3.60-5.2); RDW 18.5 % (11.6-15.6); WHITE BLOOD COUNT 10.3 K/mm3 (4.0-10.0)
[2024-05-07 08:44] LABS: POTASSIUM 4.3 mmol/L (3.5-5.1)
[2024-05-07 08:46] LABS: ALBUMIN 1.2 g/dl (3.4-5.0); BLOOD UREA NITROGEN 21.5 mg/dL (7-18); CALCIUM 7.7 mg/dL (8.5-10.1)
[2024-05-07 08:49] LABS: CREATININE 0.3 mg/dL (0.55-1.3)
[2024-05-07 08:50] LABS: PHOSPHOROUS 3.8 mg/dL (2.5-4.9)
[2024-05-07 08:51] LABS: BILIRUBIN,TOTAL 0.2 mg/dL (0.2-1); TOT PROT 6.1 g/dl (6.4-8.2)
[2024-05-08 10:21] LABS: BASO % 0.7 % (0-2.0); EOS % 9.8 % (0-4.5); HEMATOCRIT 23.1 % (32.4-45.2); HEMOGLOBIN 7.6 GM/dL (10.7-15.3); MCH 32.2 pg (25.7-33.7); MEAN CELL VOLUME 97.6 fl (80-96); MEAN PLT VOLUME 7.4 fl (7.5-11.1); MONO % 11.6 % (3.8-10.2); NEUT % 60.9 % (42.8-82.8); PLATELET COUNT 391 10^3/uL (134-434); RBC 2.36 M/mm3 (3.60-5.2); RDW 18.9 % (11.6-15.6); WHITE BLOOD COUNT 9.8 K/mm3 (4.0-10.0)
[2024-05-08 10:43] LABS: POTASSIUM 4.3 mmol/L (3.5-5.1)
[2024-05-08 10:45] LABS: CALCIUM 7.9 mg/dL (8.5-10.1)
[2024-05-08 10:46] LABS: ALBUMIN 1.2 g/dl (3.4-5.0); BLOOD UREA NITROGEN 21.2 mg/dL (7-18); MAGNESIUM 2.1 mg/dL (1.8-2.4)
[2024-05-08 10:49] LABS: CREATININE 0.3 mg/dL (0.55-1.3); PHOSPHOROUS 3.8 mg/dL (2.5-4.9)
[2024-05-08 10:50] LABS: BILIRUBIN,TOTAL 0.2 mg/dL (0.2-1)
[2024-05-08 10:51] LABS: TOT PROT 6.1 g/dl (6.4-8.2)
[2024-05-08] MEDS ORDERED: PANTOPRAZOLE SOD 40 MG SUSPENSION PACKET PO SCH (13:15)
[2024-05-08] MEDS: METOPROLOL TARTRATE 25 MG TABLET (FP) GT SCH (21:00)
[2024-05-09] MEDS: FAMOTIDINE 20 MG/2.5 ML ORAL LIQUID PEG SCH (10:16)
[2024-05-09] MEDS: METOPROLOL TARTRATE 25 MG TABLET (FP) GT SCH (10:17)
[2024-05-09 10:45] LABS: BASO % 0.4 % (0-2.0); EOS % 10.8 % (0-4.5); HEMOGLOBIN 8.5 GM/dL (10.7-15.3); LYMPH % 16.1 % (8-40); MCH 32.8 pg (25.7-33.7); MCHC 32.7 g/dl (32.0-36.0); MEAN CELL VOLUME 100.3 fl (80-96); MEAN PLT VOLUME 7.6 fl (7.5-11.1); MONO % 10.8 % (3.8-10.2); NEUT % 61.9 % (42.8-82.8); PLATELET COUNT 410 10^3/uL (134-434); RBC 2.59 M/mm3 (3.60-5.2); RDW 18.7 % (11.6-15.6); WHITE BLOOD COUNT 8.1 K/mm3 (4.0-10.0)
[2024-05-09 10:55] LABS: POTASSIUM 4.6 mmol/L (3.5-5.1)
[2024-05-09 11:01] LABS: CALCIUM 8.1 mg/dL (8.5-10.1)
[2024-05-09 11:02] LABS: ALBUMIN 1.3 g/dl (3.4-5.0); MAGNESIUM 2.2 mg/dL (1.8-2.4)
[2024-05-09 11:05] LABS: CREATININE 0.2 mg/dL (0.55-1.3); PHOSPHOROUS 3.8 mg/dL (2.5-4.9)
[2024-05-09 11:07] LABS: BILIRUBIN,TOTAL 0.7 mg/dL (0.2-1); TOT PROT 6.5 g/dl (6.4-8.2)
[2024-05-10] MEDS: METOPROLOL TARTRATE 25 MG TABLET (FP) GT SCH (11:12)
[2024-05-11 10:45] LABS: BASO % 0.7 % (0-2.0); EOS % 7.5 % (0-4.5); HEMATOCRIT 26.3 % (32.4-45.2); HEMOGLOBIN 8.6 GM/dL (10.7-15.3); LYMPH % 17.4 % (8-40); MCH 32.2 pg (25.7-33.7); MCHC 32.6 g/dl (32.0-36.0); MEAN CELL VOLUME 98.8 fl (80-96); MEAN PLT VOLUME 7.3 fl (7.5-11.1); MONO % 9.2 % (3.8-10.2); NEUT % 65.2 % (42.8-82.8); PLATELET COUNT 448 10^3/uL (134-434); RBC 2.66 M/mm3 (3.60-5.2); RDW 18.7 % (11.6-15.6); WHITE BLOOD COUNT 9.4 K/mm3 (4.0-10.0)
[2024-05-11 11:07] LABS: POTASSIUM 4.6 mmol/L (3.5-5.1)
[2024-05-11 11:20] LABS: ALBUMIN 1.4 g/dl (3.4-5.0); BLOOD UREA NITROGEN 20.6 mg/dL (7-18)
[2024-05-11 11:21] LABS: CALCIUM 8.5 mg/dL (8.5-10.1); MAGNESIUM 2.3 mg/dL (1.8-2.4)
[2024-05-11 11:23] LABS: CREATININE 0.3 mg/dL (0.55-1.3)
[2024-05-11 11:24] LABS: PHOSPHOROUS 4.3 mg/dL (2.5-4.9)
[2024-05-11 11:25] LABS: BILIRUBIN,TOTAL 0.2 mg/dL (0.2-1)
[2024-05-12] MEDS: LACTOBACILLUS ACIDOPHILUS 1 TABLET GT SCH (10:26)
[2024-05-15] MEDS: ENOXAPARIN NA (PORCINE) 40 MG/0.4 ML DISP.SYRIN SQ SCH (09:33)
[2024-05-15 09:55] LABS: BASO % 0.3 % (0-2.0); HEMATOCRIT 25.6 % (32.4-45.2); HEMOGLOBIN 8.4 GM/dL (10.7-15.3); LYMPH % 15.6 % (8-40); MCH 32.3 pg (25.7-33.7); MCHC 32.9 g/dl (32.0-36.0); MEAN CELL VOLUME 98.2 fl (80-96); MEAN PLT VOLUME 7.6 fl (7.5-11.1); MONO % 9.4 % (3.8-10.2); NEUT % 67.7 % (42.8-82.8); PLATELET COUNT 449 10^3/uL (134-434); RBC 2.61 M/mm3 (3.60-5.2); RDW 18.5 % (11.6-15.6); WHITE BLOOD COUNT 10.2 K/mm3 (4.0-10.0)
[2024-05-15 10:02] LABS: POTASSIUM 4.7 mmol/L (3.5-5.1)
[2024-05-15 10:05] LABS: ALBUMIN 1.5 g/dl (3.4-5.0); BLOOD UREA NITROGEN 24.6 mg/dL (7-18); CALCIUM 8.9 mg/dL (8.5-10.1); MAGNESIUM 2.2 mg/dL (1.8-2.4)
[2024-05-15 10:08] LABS: CREATININE 0.3 mg/dL (0.55-1.3)
[2024-05-15 10:09] LABS: PHOSPHOROUS 4.5 mg/dL (2.5-4.9)
[2024-05-15 10:10] LABS: BILIRUBIN,TOTAL 0.3 mg/dL (0.2-1); TOT PROT 7.1 g/dl (6.4-8.2)
[2024-05-17 09:53] LABS: BASO % 0.3 % (0-2.0); HEMATOCRIT 22.4 % (32.4-45.2); HEMOGLOBIN 7.2 GM/dL (10.7-15.3); LYMPH % 20.4 % (8-40); MCH 31.9 pg (25.7-33.7); MCHC 32.4 g/dl (32.0-36.0); MEAN CELL VOLUME 98.6 fl (80-96); MEAN PLT VOLUME 7.5 fl (7.5-11.1); MONO % 12.1 % (3.8-10.2); NEUT % 59.2 % (42.8-82.8); PLATELET COUNT 421 10^3/uL (134-434); RBC 2.27 M/mm3 (3.60-5.2); RDW 18.2 % (11.6-15.6); WHITE BLOOD COUNT 9.6 K/mm3 (4.0-10.0)
[2024-05-17 10:10] LABS: POTASSIUM 4.8 mmol/L (3.5-5.1)
[2024-05-17 10:15] LABS: ALBUMIN 1.5 g/dl (3.4-5.0); BLOOD UREA NITROGEN 23.6 mg/dL (7-18); CALCIUM 8.6 mg/dL (8.5-10.1)
[2024-05-17 10:19] LABS: CREATININE 0.3 mg/dL (0.55-1.3)
[2024-05-17 10:20] LABS: BILIRUBIN,TOTAL 0.2 mg/dL (0.2-1); TOT PROT 6.9 g/dl (6.4-8.2)
[2024-05-19 09:13] LABS: BASO % 0.2 % (0-2.0); EOS % 8.3 % (0-4.5); HEMOGLOBIN 8.5 GM/dL (10.7-15.3); LYMPH % 19.2 % (8-40); MCH 32.7 pg (25.7-33.7); MCHC 32.6 g/dl (32.0-36.0); MEAN CELL VOLUME 100.3 fl (80-96); MEAN PLT VOLUME 7.1 fl (7.5-11.1); MONO % 11.4 % (3.8-10.2); NEUT % 60.9 % (42.8-82.8); PLATELET COUNT 458 10^3/uL (134-434); RDW 17.9 % (11.6-15.6); WHITE BLOOD COUNT 9.4 K/mm3 (4.0-10.0)
[2024-05-21 10:18] LABS: BASO % 0.3 % (0-2.0); EOS % 7.1 % (0-4.5); HEMOGLOBIN 8.8 GM/dL (10.7-15.3); LYMPH % 21.3 % (8-40); MCH 33.2 pg (25.7-33.7); MCHC 33.8 g/dl (32.0-36.0); MEAN CELL VOLUME 98.2 fl (80-96); MEAN PLT VOLUME 7.6 fl (7.5-11.1); MONO % 11.5 % (3.8-10.2); NEUT % 59.8 % (42.8-82.8); PLATELET COUNT 446 10^3/uL (134-434); RBC 2.65 M/mm3 (3.60-5.2); RDW 17.9 % (11.6-15.6)
[2024-05-21] MEDS: ARTIFICIAL TEARS OPHTHALMIC DROPS OU PRN (10:32)
[2024-05-21 11:10] LABS: POTASSIUM 4.8 mmol/L (3.5-5.1)
[2024-05-21 11:16] LABS: ALBUMIN 1.6 g/dl (3.4-5.0); BLOOD UREA NITROGEN 25.9 mg/dL (7-18); CALCIUM 8.9 mg/dL (8.5-10.1)
[2024-05-21 11:20] LABS: CREATININE 0.3 mg/dL (0.55-1.3)
[2024-05-21 11:21] LABS: BILIRUBIN,TOTAL 0.4 mg/dL (0.2-1); TOT PROT 7.3 g/dl (6.4-8.2)
[2024-05-23] MEDS ORDERED: MINERAL OIL/PET HY-PHL TOPICAL OINTMENT 454 GM JAR TP PRN (15:00)
[2024-05-24 09:59] LABS: POTASSIUM 4.7 mmol/L (3.5-5.1)
[2024-05-24 10:01] LABS: CALCIUM 9.2 mg/dL (8.5-10.1)
[2024-05-24 10:02] LABS: ALBUMIN 1.6 g/dl (3.4-5.0); BLOOD UREA NITROGEN 29.1 mg/dL (7-18)
[2024-05-24 10:05] LABS: CREATININE 0.3 mg/dL (0.55-1.3); PHOSPHOROUS 4.7 mg/dL (2.5-4.9)
[2024-05-24 10:06] LABS: BILIRUBIN,TOTAL 0.5 mg/dL (0.2-1)
[2024-05-24 10:07] LABS: TOT PROT 7.2 g/dl (6.4-8.2)
[2024-05-25 09:48] LABS: BASO % 0.6 % (0-2.0); EOS % 5.5 % (0-4.5); HEMATOCRIT 23.5 % (32.4-45.2); HEMOGLOBIN 7.5 GM/dL (10.7-15.3); LYMPH % 14.9 % (8-40); MCH 31.4 pg (25.7-33.7); MCHC 31.8 g/dl (32.0-36.0); MEAN CELL VOLUME 98.5 fl (80-96); MEAN PLT VOLUME 7.4 fl (7.5-11.1); PLATELET COUNT 477 10^3/uL (134-434); RBC 2.39 M/mm3 (3.60-5.2); RDW 17.5 % (11.6-15.6); WHITE BLOOD COUNT 13.9 K/mm3 (4.0-10.0)
[2024-05-25 09:58] LABS: INR 0.98 (0.83-1.09); PROTHROMBIN TIME (PATIENT) 11.3 SEC (9.7-13.0)
[2024-05-25 10:11] LABS: POTASSIUM 4.9 mmol/L (3.5-5.1)
[2024-05-25 10:20] LABS: ALBUMIN 1.6 g/dl (3.4-5.0); BLOOD UREA NITROGEN 27.2 mg/dL (7-18); CALCIUM 8.7 mg/dL (8.5-10.1)
[2024-05-25 10:23] LABS: CREATININE 0.3 mg/dL (0.55-1.3)
[2024-05-25 10:24] LABS: BILIRUBIN,TOTAL 0.2 mg/dL (0.2-1); TOT PROT 7.4 g/dl (6.4-8.2)
[2024-05-25] MEDS: levETIRAcetam 500 MG/5 ML ORAL SOLUTION (UNIT-DOSE CUPS) GT SCH (22:19)
[2024-05-26 10:39] LABS: BASO % 0.2 % (0-2.0); EOS % 5.9 % (0-4.5); HEMATOCRIT 25.5 % (32.4-45.2); LYMPH % 9.6 % (8-40); MCH 31.6 pg (25.7-33.7); MCHC 31.6 g/dl (32.0-36.0); MEAN CELL VOLUME 100.1 fl (80-96); MEAN PLT VOLUME 6.8 fl (7.5-11.1); NEUT % 75.3 % (42.8-82.8); PLATELET COUNT 446 10^3/uL (134-434); RBC 2.55 M/mm3 (3.60-5.2); RDW 16.9 % (11.6-15.6); WHITE BLOOD COUNT 15.4 K/mm3 (4.0-10.0)
[2024-05-26 10:49] LABS: POTASSIUM 4.6 mmol/L (3.5-5.1)
[2024-05-26 11:12] LABS: ALBUMIN 1.5 g/dl (3.4-5.0); BLOOD UREA NITROGEN 27.4 mg/dL (7-18); CALCIUM 8.9 mg/dL (8.5-10.1)
[2024-05-26 11:16] LABS: CREATININE 0.3 mg/dL (0.55-1.3)
[2024-05-26 11:17] LABS: BILIRUBIN,TOTAL 0.2 mg/dL (0.2-1); TOT PROT 7.3 g/dl (6.4-8.2)
[2024-05-26] MEDS ORDERED: traMADol HCL 50 MG TABLET PEG PRN (20:01)
[2024-05-27 10:56] LABS: BASO % 0.1 % (0-2.0); EOS % 5.8 % (0-4.5); HEMOGLOBIN 7.3 GM/dL (10.7-15.3); LYMPH % 12.3 % (8-40); MCH 31.6 pg (25.7-33.7); MCHC 31.9 g/dl (32.0-36.0); MEAN PLT VOLUME 7.6 fl (7.5-11.1); MONO % 10.6 % (3.8-10.2); NEUT % 71.2 % (42.8-82.8); PLATELET COUNT 455 10^3/uL (134-434); RBC 2.32 M/mm3 (3.60-5.2); RDW 16.9 % (11.6-15.6); WHITE BLOOD COUNT 13.2 K/mm3 (4.0-10.0)
[2024-05-27 11:17] LABS: POTASSIUM 4.7 mmol/L (3.5-5.1)
[2024-05-27 11:23] LABS: ALBUMIN 1.4 g/dl (3.4-5.0); CALCIUM 8.8 mg/dL (8.5-10.1)
[2024-05-27 11:24] LABS: BLOOD UREA NITROGEN 27.7 mg/dL (7-18); MAGNESIUM 2.1 mg/dL (1.8-2.4)
[2024-05-27 11:27] LABS: BILIRUBIN,TOTAL 0.3 mg/dL (0.2-1); CREATININE 0.4 mg/dL (0.55-1.3); PHOSPHOROUS 4.6 mg/dL (2.5-4.9); TOT PROT 7.2 g/dl (6.4-8.2)
[2024-05-28 09:55] LABS: BASO % 0.1 % (0-2.0); EOS % 7.2 % (0-4.5); HEMATOCRIT 23.6 % (32.4-45.2); HEMOGLOBIN 7.6 GM/dL (10.7-15.3); LYMPH % 10.7 % (8-40); MCH 32.2 pg (25.7-33.7); MCHC 32.5 g/dl (32.0-36.0); MEAN CELL VOLUME 99.3 fl (80-96); MEAN PLT VOLUME 7.5 fl (7.5-11.1); PLATELET COUNT 453 10^3/uL (134-434); RBC 2.37 M/mm3 (3.60-5.2); RDW 16.7 % (11.6-15.6)
[2024-05-28 10:29] LABS: POTASSIUM 4.6 mmol/L (3.5-5.1)
[2024-05-28 10:36] LABS: ALBUMIN 1.4 g/dl (3.4-5.0); BLOOD UREA NITROGEN 32.2 mg/dL (7-18); CALCIUM 8.9 mg/dL (8.5-10.1); MAGNESIUM 2.1 mg/dL (1.8-2.4)
[2024-05-28 10:40] LABS: PHOSPHOROUS 4.7 mg/dL (2.5-4.9)
[2024-05-28 10:41] LABS: BILIRUBIN,TOTAL 0.2 mg/dL (0.2-1); CREATININE 0.3 mg/dL (0.55-1.3); TOT PROT 7.1 g/dl (6.4-8.2)
[2024-05-29 10:01] LABS: BASO % 0.2 % (0-2.0); EOS % 7.3 % (0-4.5); HEMATOCRIT 23.6 % (32.4-45.2); HEMOGLOBIN 7.3 GM/dL (10.7-15.3); LYMPH % 14.4 % (8-40); MCH 31.2 pg (25.7-33.7); MCHC 30.9 g/dl (32.0-36.0); MEAN CELL VOLUME 100.8 fl (80-96); MEAN PLT VOLUME 7.7 fl (7.5-11.1); MONO % 9.1 % (3.8-10.2); PLATELET COUNT 474 10^3/uL (134-434); RBC 2.34 M/mm3 (3.60-5.2); RDW 16.9 % (11.6-15.6); WHITE BLOOD COUNT 12.9 K/mm3 (4.0-10.0)
[2024-05-29 10:13] LABS: INR 1.08 (0.83-1.09); PROTHROMBIN TIME (PATIENT) 12.4 SEC (9.7-13.0)
[2024-05-29 10:35] LABS: POTASSIUM 4.6 mmol/L (3.5-5.1)
[2024-05-29 10:38] LABS: AMYLASE 27 U/L (25-115)
[2024-05-29 10:39] LABS: CALCIUM 8.7 mg/dL (8.5-10.1)
[2024-05-29 10:40] LABS: ALBUMIN 1.5 g/dl (3.4-5.0)
[2024-05-29 10:41] LABS: BLOOD UREA NITROGEN 32.8 mg/dL (7-18)
[2024-05-29 10:43] LABS: CREATININE 0.4 mg/dL (0.55-1.3); PHOSPHOROUS 4.4 mg/dL (2.5-4.9)
[2024-05-29 10:44] LABS: BILIRUBIN,TOTAL 0.4 mg/dL (0.2-1); TOT PROT 7.2 g/dl (6.4-8.2)
[2024-05-30 11:05] LABS: BASO % 0.1 % (0-2.0); HEMATOCRIT 23.9 % (32.4-45.2); HEMOGLOBIN 7.7 GM/dL (10.7-15.3); LYMPH % 10.2 % (8-40); MCHC 32.2 g/dl (32.0-36.0); MEAN CELL VOLUME 99.4 fl (80-96); MEAN PLT VOLUME 7.8 fl (7.5-11.1); MONO % 8.2 % (3.8-10.2); NEUT % 73.5 % (42.8-82.8); PLATELET COUNT 496 10^3/uL (134-434); RDW 16.7 % (11.6-15.6)
[2024-05-30 11:28] LABS: INR 1.04 (0.83-1.09); PROTHROMBIN TIME (PATIENT) 11.7 SEC (9.7-13.0)
[2024-05-30 11:39] LABS: POTASSIUM 4.4 mmol/L (3.5-5.1)
[2024-05-30 11:43] LABS: ALBUMIN 1.5 g/dl (3.4-5.0); CALCIUM 9.1 mg/dL (8.5-10.1)
[2024-05-30 11:44] LABS: BLOOD UREA NITROGEN 28.1 mg/dL (7-18)
[2024-05-30 11:46] LABS: BILIRUBIN,DIRECT 0.1 mg/dL (0.0-0.2)
[2024-05-30 11:47] LABS: CREATININE 0.3 mg/dL (0.55-1.3)
[2024-05-30 11:48] LABS: BILIRUBIN,TOTAL 0.3 mg/dL (0.2-1); TOT PROT 7.5 g/dl (6.4-8.2)
[2024-06-01 11:08] LABS: BASO % 0.1 % (0-2.0); EOS % 4.4 % (0-4.5); HEMATOCRIT 23.6 % (32.4-45.2); HEMOGLOBIN 7.5 GM/dL (10.7-15.3); LYMPH % 11.6 % (8-40); MCH 31.5 pg (25.7-33.7); MCHC 31.7 g/dl (32.0-36.0); MEAN CELL VOLUME 99.3 fl (80-96); MEAN PLT VOLUME 7.7 fl (7.5-11.1); MONO % 8.8 % (3.8-10.2); NEUT % 75.1 % (42.8-82.8); PLATELET COUNT 524 10^3/uL (134-434); RBC 2.38 M/mm3 (3.60-5.2); RDW 17.2 % (11.6-15.6); WHITE BLOOD COUNT 13.6 K/mm3 (4.0-10.0)
[2024-06-02 10:28] LABS: BASO % 0.2 % (0-2.0); EOS % 6.2 % (0-4.5); HEMATOCRIT 23.8 % (32.4-45.2); HEMOGLOBIN 7.4 GM/dL (10.7-15.3); LYMPH % 12.1 % (8-40); MCH 30.9 pg (25.7-33.7); MEAN CELL VOLUME 99.7 fl (80-96); MEAN PLT VOLUME 7.9 fl (7.5-11.1); MONO % 8.8 % (3.8-10.2); NEUT % 72.7 % (42.8-82.8); PLATELET COUNT 506 10^3/uL (134-434); RBC 2.38 M/mm3 (3.60-5.2); RDW 17.4 % (11.6-15.6); WHITE BLOOD COUNT 14.2 K/mm3 (4.0-10.0)
[2024-06-02 10:41] LABS: POTASSIUM 4.8 mmol/L (3.5-5.1)
[2024-06-02 10:47] LABS: ALBUMIN 1.5 g/dl (3.4-5.0); BLOOD UREA NITROGEN 36.2 mg/dL (7-18); CALCIUM 9.2 mg/dL (8.5-10.1)
[2024-06-02 10:51] LABS: BILIRUBIN,TOTAL 0.3 mg/dL (0.2-1); CREATININE 0.4 mg/dL (0.55-1.3); TOT PROT 7.5 g/dl (6.4-8.2)
[2024-06-03 09:25] LABS: BASO % 0.2 % (0-2.0); EOS % 9.3 % (0-4.5); HEMATOCRIT 25.5 % (32.4-45.2); HEMOGLOBIN 8.2 GM/dL (10.7-15.3); LYMPH % 10.7 % (8-40); MCH 31.8 pg (25.7-33.7); MEAN CELL VOLUME 99.5 fl (80-96); MEAN PLT VOLUME 7.8 fl (7.5-11.1); MONO % 7.7 % (3.8-10.2); NEUT % 72.1 % (42.8-82.8); PLATELET COUNT 469 10^3/uL (134-434); RBC 2.57 M/mm3 (3.60-5.2); RDW 16.7 % (11.6-15.6); WHITE BLOOD COUNT 16.2 K/mm3 (4.0-10.0)
[2024-06-03 09:43] LABS: POTASSIUM 4.7 mmol/L (3.5-5.1)
[2024-06-03 09:45] LABS: CALCIUM 9.2 mg/dL (8.5-10.1)
[2024-06-03 09:46] LABS: ALBUMIN 1.4 g/dl (3.4-5.0)
[2024-06-03 09:49] LABS: CREATININE 0.4 mg/dL (0.55-1.3)
[2024-06-03 09:50] LABS: BILIRUBIN,TOTAL 0.3 mg/dL (0.2-1)
[2024-06-04] MEDS: IVERMECTIN 3 MG TABLET PO ONE (17:46)
[2024-06-05 09:12] LABS: BASO % 0.4 % (0-2.0); EOS % 17.2 % (0-4.5); HEMATOCRIT 24.5 % (32.4-45.2); HEMOGLOBIN 7.7 GM/dL (10.7-15.3); LYMPH % 13.9 % (8-40); MCH 31.6 pg (25.7-33.7); MCHC 31.5 g/dl (32.0-36.0); MEAN CELL VOLUME 100.1 fl (80-96); MEAN PLT VOLUME 8.1 fl (7.5-11.1); MONO % 6.6 % (3.8-10.2); NEUT % 61.9 % (42.8-82.8); PLATELET COUNT 493 10^3/uL (134-434); RBC 2.45 M/mm3 (3.60-5.2); RDW 17.2 % (11.6-15.6); WHITE BLOOD COUNT 12.1 K/mm3 (4.0-10.0)
[2024-06-05 09:16] LABS: POTASSIUM 4.6 mmol/L (3.5-5.1)
[2024-06-05 09:21] LABS: CALCIUM 9.5 mg/dL (8.5-10.1)
[2024-06-05 09:22] LABS: ALBUMIN 1.4 g/dl (3.4-5.0); BLOOD UREA NITROGEN 37.8 mg/dL (7-18); MAGNESIUM 2.3 mg/dL (1.8-2.4)
[2024-06-05 09:25] LABS: CREATININE 0.3 mg/dL (0.55-1.3); PHOSPHOROUS 5.8 mg/dL (2.5-4.9)
[2024-06-05 09:26] LABS: BILIRUBIN,TOTAL 0.4 mg/dL (0.2-1)
[2024-06-05 09:27] LABS: TOT PROT 7.1 g/dl (6.4-8.2)
[2024-06-05] MEDS: SEVELAMER CARBONATE 800 MG TAB (FP) PO SCH (18:29)
[2024-06-05] MEDS: IVERMECTIN 3 MG TABLET PO ONE (18:58)
[2024-06-06 10:13] LABS: BASO % 0.3 % (0-2.0); EOS % 14.8 % (0-4.5); HEMATOCRIT 23.7 % (32.4-45.2); HEMOGLOBIN 7.5 GM/dL (10.7-15.3); LYMPH % 11.7 % (8-40); MCH 31.5 pg (25.7-33.7); MCHC 31.5 g/dl (32.0-36.0); MEAN PLT VOLUME 7.9 fl (7.5-11.1); NEUT % 66.2 % (42.8-82.8); PLATELET COUNT 438 10^3/uL (134-434); RBC 2.37 M/mm3 (3.60-5.2); RDW 17.4 % (11.6-15.6); WHITE BLOOD COUNT 12.3 K/mm3 (4.0-10.0)
[2024-06-06 10:22] LABS: POTASSIUM 4.6 mmol/L (3.5-5.1)
[2024-06-06 10:29] LABS: CALCIUM 9.3 mg/dL (8.5-10.1)
[2024-06-06 10:30] LABS: ALBUMIN 1.4 g/dl (3.4-5.0); BLOOD UREA NITROGEN 27.8 mg/dL (7-18); MAGNESIUM 2.7 mg/dL (1.8-2.4)
[2024-06-06 10:33] LABS: CREATININE 0.4 mg/dL (0.55-1.3); PHOSPHOROUS 6.4 mg/dL (2.5-4.9)
[2024-06-06 10:35] LABS: BILIRUBIN,TOTAL 0.2 mg/dL (0.2-1); TOT PROT 6.9 g/dl (6.4-8.2)
[2024-06-06] MEDS: ENOXAPARIN NA (PORCINE) 30 MG/0.3 ML DISP.SYRIN SQ SCH (10:35)
[2024-06-07 09:27] LABS: POTASSIUM 5.2 mmol/L (3.5-5.1)
[2024-06-07 09:32] LABS: BLOOD UREA NITROGEN 37.7 mg/dL (7-18); CALCIUM 9.1 mg/dL (8.5-10.1)
[2024-06-07 09:33] LABS: ALBUMIN 1.4 g/dl (3.4-5.0); MAGNESIUM 2.2 mg/dL (1.8-2.4)
[2024-06-07 09:35] LABS: CREATININE 0.3 mg/dL (0.55-1.3)
[2024-06-07 09:36] LABS: PHOSPHOROUS 6.6 mg/dL (2.5-4.9)
[2024-06-07 09:37] LABS: BILIRUBIN,TOTAL 0.7 mg/dL (0.2-1); TOT PROT 7.2 g/dl (6.4-8.2)
[2024-06-07] MEDS: SODIUM ZIRCONIUM CYCLOSILICATE (LOKELMA) 5 GM PACKET PO SCH (15:14)
[2024-06-08 16:32] VITALS: BP 112/67; PULSE 82; RESP 18; TEMP 97.5
== END 2024-06-08 18:00 | disposition short-term general hospital (02) | DRG 5 ==
LOC: JER 23:27 → JERBED 03-17 06:06 → JICU 03-17 11:02 → J4W 03-22 14:39 → JICU 03-26 06:47 → J5S 04-17 12:22 → J6W 05-23 10:50
PROVIDERS: ADMIT Internal Medicine Pulmonary Disease; ATTEND Internal Medicine
PROC: 5A1945Z Respiratory Ventilation, 24-96 Consecutive Hours (ICD-10-PCS; 2024-03-17)
PROC: 0BH17EZ Insertion of Endotracheal Airway into Trachea, Via Natural or Artificial Opening (ICD-10-PCS; 2024-03-17)
PROC: 05HM33Z Insertion of Infusion Device into Right Internal Jugular Vein, Percutaneous Approach (ICD-10-PCS; 2024-03-17)
PROC: B543ZZA Ultrasonography of Right Jugular Veins, Guidance (ICD-10-PCS; 2024-03-17)
PROC: 30233N1 Transfusion of Nonautologous Red Blood Cells into Peripheral Vein, Percutaneous Approach (ICD-10-PCS; 2024-03-18)
PROC: 30233R1 Transfusion of Nonautologous Platelets into Peripheral Vein, Percutaneous Approach (ICD-10-PCS; 2024-03-20)
PROC: 05HM33Z Insertion of Infusion Device into Right Internal Jugular Vein, Percutaneous Approach (ICD-10-PCS; 2024-03-26)
PROC: B543ZZA Ultrasonography of Right Jugular Veins, Guidance (ICD-10-PCS; 2024-03-26)
PROC: 5A1955Z Respiratory Ventilation, Greater than 96 Consecutive Hours (ICD-10-PCS; 2024-03-26)
PROC: 0BH17EZ Insertion of Endotracheal Airway into Trachea, Via Natural or Artificial Opening (ICD-10-PCS; 2024-03-26)
PROC: 4A10X4Z Monitoring of Central Nervous Electrical Activity, External Approach (ICD-10-PCS; 2024-03-29)
PROC: 0B113Z4 Bypass Trachea to Cutaneous, Percutaneous Approach (ICD-10-PCS; principal; 2024-04-12)
PROC: 0BJ08ZZ Inspection of Tracheobronchial Tree, Via Natural or Artificial Opening Endoscopic (ICD-10-PCS; 2024-04-12)
PROC: 0DH63UZ Insertion of Feeding Device into Stomach, Percutaneous Approach (ICD-10-PCS; 2024-04-26)
PROC: 3E0G76Z Introduction of Nutritional Substance into Upper GI, Via Natural or Artificial Opening (ICD-10-PCS; 2024-04-26)
DX: A41.89 Other specified sepsis (principal); R65.21 Severe sepsis with septic shock; R57.1 Hypovolemic shock; J69.0 Pneumonitis due to inhalation of food and vomit; I69.354 Hemiplegia and hemiparesis following cerebral infarction affecting left non-dominant side; N17.9 Acute kidney failure, unspecified; G93.41 Metabolic encephalopathy; L89.310 Pressure ulcer of right buttock, unstageable; L89.154 Pressure ulcer of sacral region, stage 4; G93.1 Anoxic brain damage, not elsewhere classified; R13.10 Dysphagia, unspecified; L89.320 Pressure ulcer of left buttock, unstageable; E87.0 Hyperosmolality and hypernatremia; I24.89 Other forms of acute ischemic heart disease; L89.023 Pressure ulcer of left elbow, stage 3; D69.6 Thrombocytopenia, unspecified; I48.91 Unspecified atrial fibrillation; E86.0 Dehydration; L89.892 Pressure ulcer of other site, stage 2; L89.510 Pressure ulcer of right ankle, unstageable; E87.20 Acidosis, unspecified; L89.520 Pressure ulcer of left ankle, unstageable; L89.012 Pressure ulcer of right elbow, stage 2; L89.210 Pressure ulcer of right hip, unstageable; E27.40 Unspecified adrenocortical insufficiency; I12.9 Hypertensive chronic kidney disease with stage 1 through stage 4 chronic kidney disease, or unspecified chronic kidney disease; E83.52 Hypercalcemia; M81.0 Age-related osteoporosis without current pathological fracture; E78.5 Hyperlipidemia, unspecified; J96.01 Acute respiratory failure with hypoxia; N18.32 Chronic kidney disease, stage 3b; D64.9 Anemia, unspecified; N39.0 Urinary tract infection, site not specified; E87.6 Hypokalemia; R33.9 Retention of urine, unspecified; R79.89 Other specified abnormal findings of blood chemistry
CPT/HCPCS: 0241U-QW; 36415; 36430; 36600; 49440; 70450-TC; 71045-TC-FY; 74018-TC-FY; 74176-TC; 76705-TC; 80048; 80053; 80076; 80177; 81003; 82150; 82272; 82306; 82308; 82550; 82553; 82607; 82728; 82746; 82803; 82962; 82977; 83010; 83540; 83550; 83605; 83615; 83690; 83735; 83880; 83930; 83935; 83970; 84080; 84100; 84484; 85025; 85027; 85045; 85384; 85610; 85730; 86022; 86682; 86704; 86705; 86709; 86803; 86850; 86900; 86901; 86922; 87040; 87070; 87077; 87086; 87186; 87205; 87324; 87340; 87449; 87517; 87529; 87635; 88300-TC; 90677; 93005; 93010; 93306-TC; 93970-TC; 93971; 94002; 94640; 94660; 95816; 97161-GP; 99291; G0009; G0480; J1644; J3490; P9037; P9038; P9058